=== PATIENT | female | born 1995 | race Caucasian/White ===

== ENCOUNTER 2025-05-18 09:17 | Outpatient (OUT) | payer OTHER, SELFPAY ==
--- OUTSIDE RECORDS SUMMARY | 2014-08-02 05:53 | XMS_ITS | Continuity of Care Document ---
Author Organization [facility] Address [address] [place] [address] [place] [address] Phone Care Team Providers Care Water Plant Pump Operator Name Role Phone Kiersten Echevarria CNP, CNP Unavailable Unav ailable Medications Medication Instructions Dosage Effective Dates (start - stop) Status Comments pantoprazole 40 mg tablet,delayed release take 1 tablet by oral route every day 40 MG - Active Multivitamins 28 mg iron-800 mcg tablet take 1 tablet by oral route every day 1 tablet - Active meloxicam 15 mg tablet take 1 tablet by oral route every day as needed 15 MG - Active biotin 1 mg capsule [...] Diagnoses Date Provider Providers Copied on Encounter [facility], [address] [place] [address] [address], [place], [place], [id number], [place] tel:[phone] [facility] No Information Swathi Burch. [address], [place], [id number], [place]. tel:[phone] OFFICE/OUTPAT IENT VISIT, [facility], [address] [place] [address] [address], [place], [place], [id number], [place] tel:[phone] [facility] No Information Marla Escudero. [address], [place], [place], [id number], [place]. tel:[phone] Referring Provider: Kota Parada, [address], [place], [address]. tel:[phone] OFFICE/OUTPAT IENT VISIT, [facility] [employer], [address] [place] [address] [address], [place], [place], [id number], [place] tel:[phone] [facility] No Information Swathi Burch. [address] [place], [place], [id number], [place]. tel:[phone] Referring Provider: Kiersten Echevarria CNP, [address], [place], [address]. tel:[phone] OFFICE/OUTPAT IENT VISIT, [facility], [address] [place] [address] [address], [place], [id number], [place] tel:[phone] [facility] No Information Marla Escudero. [address], [place], [place], [address], [place]. tel:[phone] Referring Provider: Kota Parada, [address], [place], [address]. tel:[phone] [facility], [address] [place] [address] [address], [place], [place], [id number], [place] tel:[phone] [facility] No Information Angus Lee. [address], [place], [place], [id number], [place]. tel:[phone] Referring Provider: Rosa Ladd, Nathaniel[address], [place], [address]. tel:[phone] OFFICE/OUTPAT IENT VISIT, [facility], [address] [facility] [address], [place], [place], [address], [place] tel:[phone] [facility] No Information Swathi Burch. [address] [place], [place], [id number], [place]. tel:[phone] Referring Provider: Kiersten Echevarria CNP, [address] [place], [address]. tel:[phone] Family History Family Member Type Diagnosis Age At Onset No Information Payers Payer name Insurance type Covered constitution party ID Authoriza anderson(s) Medicaid [id number] Social History Type Description Quantity Date Captured Comments Alcohol Use Details Unknown Caffeine Use Details Unknown Tobacco Use Status Very heavy cigarette smoker (40+ cigs/day) Smoking Status Heavy tobacco smoker Smoking Tobacco Use Details Cigarette: No Details Available Cigarette: 2 Packs per day Sex Female Chief Complaint And Reason For Visit No [...]
--- OUTSIDE RECORDS SUMMARY | 2025-05-18 09:23 | XMS_ITS | Encounter Summary ---
Author Organization [facility] Address [address] [place] [address] Care Team Providers Care Supply Manager Name Role Phone Josee Tre Watts Primary Care Provider + Source Comments In the event this information is protected by the Federal Confidentiality of Alcohol and Drug AbusePatient Records regulations: The Federal rules restrict any use of the information to criminally investigate or prosecute any alcohol or drug abuse patient.[facility] Encounter Details Date Type Department Care Team (Late st Contact Info) Description 05/04/2025 Get Medical Advice General Surgery [address] [id number] Kim Carey, FREIDA.HEAD CAGER [address] [place] [address] Testings Social History Tobacco Use Types Packs/Day Years Used Date Smoking Tobacco: Former Cigarettes Smokeless Tobacco: Never Comments:nicotine free vape Alcohol Use Standard Drinks/Week Comments Not Currently 0 (1 standard drink = 0.6 oz pur e alcohol) none PHQ-2 Answer Date Recorded PHQ-2 score 2 04/19/2025 Hunger Vital Sign Answer Date Recorded Within the past 12 months, y ou worried that your food would run out before you got the money to buy more. Never true 04/01/20 25 Within the past 12 months, t he food you bought just didn't last and you didn't have money to get more. Never true 04/01/2025 Area Deprivation Index Answer Date Chadd rded National Score (1-100), lower number is lower ri sk 80 02/18/2025 State Score (1-10), lower number is lower risk 7 02/18/2025 Data from: https://www.neighborhoodatlas.medicine.[facility] [place]/. Last address used for calculation [address] 02/18/2025 Comments No Sex and Gender Information Value Date Recorded Sex Assigned at Female 02/16/2021 6:50 PM EDT Legal Sex Female 10:17 AM EST Gender Identity Female 02/16/2021 6:50 PM EDT Sexual Orientation Bisexual 02/16/2021 6: 50 PM EDT documented as of this encounter Functional Status * Are you deaf or do you have serious difficulty hearing? Answer Date of Assessment Author No 08/22/2021 11:44 AM Ana Oliva RN * Are you blind or do you have serious difficulty seeing, even when wearing glasses? Answer Date of Assessment Author No 08/22/2021 11:44 AM Ana Oliva RN * Do you have serious difficulty walking or climbing stairs? Answer Date of Assessment Author No 08/22/2021 11:44 AM Ana Oliva RN * Do you have difficulty dressing or bathing? Answer Date of Assessment Author No 08/22/2021 11:44 AM Ana Oliva RN * Because of a physical, mental, or emotional condition, do you have difficulty doing errands alone such as visiting a doctor's office or shopping? Answer Date of Assessment Author No 08/22/2021 11:44 AM Ana Oliva RN documented as of this encounter Mental Status * Because of a physical, mental, or emotional condition, do you have serious difficulty concentrating, remembering, or making decisions? Answer Entry Date Author No 08/22/2021 11:44 AM Ana Oliva RN documented in this encounter Plan of Treatment Upcoming Encounters Date Type Department Care Team (Latest Contact Info) Description 05/24/2025 3:15 PM EDT [facility] General Surgery [address] [place] [address] Mckayla Borja, RD [address] [place] [address] pre-op 06/28/2025 10:00 AM EDT [facility] Genetic [facility] [address] [place] [address] Maude Tse LGC Family history of breast cancer [Z80.3] 09/15/2025 9:30 AM EST [facility] Nutrition [address] [place] [address] Holli Cerda, G[address] [facility] [address] [place] [address] nutrition documented as of this encounter Goals Goal Patient Goal Type Associated Problems Recent Progress Patient-Stated? Author Bariatric Surgery Authorization Computational Biologist Care Plan Bariatric Surgery Authorization Computational Biologist No Mariela Larkin documented as of this encounter Visit Diagnoses Not on filedocumented in this encounter Additional Health Concerns Active Problems Noted Date Diagnosed Date Bariatric Surgery Authorization Computational Biologist 0 03/01/2025 documented as of this encounter Care Teams Supply Manager Relationship Specialty Start Date End Date Tre Tripp DO [address] [place] [address] PCP - General Family Medicine 10/20/15 documented as of this encounter
--- OUTSIDE RECORDS SUMMARY | 2025-05-18 09:23 | XMS_ITS | Encounter Summary ---
Author Organization [facility] Address [address] [place] [address] Care Team Providers Care Metal Furniture Polisher Name Role Phone Tre Tripp DO Primary Care Provider + Source Comments In the event this information is protected by the Federal Confidentiality of Alcohol and Drug AbusePatient Records regulations: The Federal rules restrict any use of the information to criminally investigate or prosecute any alcohol or drug abuse patient.[facility] Encounter Details Date Type Department Care Team (Late st Contact Info) Description 03/01/2025 [place] [address] Provider, [facility] Introduction to your Bariatric Surgery Journey Social History Tobacco Use Types Packs/Day Years Used Date Smoking Tobacco: Every Day Cigarettes Smokeless Tobacco: Never Comments:about 5 cigs a day, trying to quit Alcohol Use Standard Drinks/Week Comments Not Currently 0 (1 standard drink = 0.6 oz pur e alcohol) PHQ-2 Answer Date Recorded PHQ-2 score 1 02/16/2025 Area Deprivation Index Answer Date Chadd rded National Score (1-100), lower number is lower ri sk 80 02/18/2025 State Score (1-10), lower number is lower risk 7 02/18/2025 Data from: https://www.neighborhoodatlas.medicine.[facility]/. Last address used for calculation [address] 02/18/2025 Comments No Sex and Gender Information [...] Contact Info) Description 05/24/2025 3:15 PM EDT [facility] General Surgery [address] [place] [address] Mckayla Borja, GINO [address] [place] [address] pre-op 06/28/2025 10:00 AM EDT [facility] [address] [place] [address] Maude Tse LGC Family history of breast cancer [Z80.3] 09/15/2025 9:30 AM EST [facility] Nutrition [address] [place] [address] Holli Cerda, GINO [address] [facility] [address] [place] [address] nutrition documented as of this encounter Goals Goal Patient Goal Type Associated Problems Recent Progress Patient-Stated? Author Bariatric Surgery Authorization Corporate Relations Manager Care Plan Bariatric Surgery Authorization Corporate Relations Manager No Mariela Larkin documented as of this encounter Visit Diagnoses Not on filedocumented in this encounter Additional Health Concerns Active Problems Noted Date Diagnosed Date Bariatric Surgery Authorization Corporate Relations Manager 0 03/01/2025 documented as of this encounter Care Teams Metal Furniture Polisher Relationship Specialty Start Date End Date Tre Tripp DO [address] [place] [address] PCP - General Family Medicine 10/20/15 documented as of this encounter
--- OUTSIDE RECORDS SUMMARY | 2025-05-18 09:23 | XMS_ITS | Encounter Summary ---
Author Organization [facility] Address [address] [place] [address] Care Team Providers Care Brokerage Coordinator Name Role Phone BrockTre turcios Primary Care Provider + Source Comments In the event this information is protected by the Federal Confidentiality of Alcohol and Drug AbusePatient Records regulations: The Federal rules restrict any use of the information to criminally investigate or prosecute any alcohol or drug abuse patient.[facility] Encounter Details Date Type Department Care Team (Late st Contact Info) Description 05/02/2021 Get Medical Advice Maternal Medicine [address] [address] [place] [address] [place] [address] [address] [id number] Non-Urgent Medical Question Social History Tobacco Use Types Packs/Day Years Used Date Smoking Tobacco: Every Day Cigarettes Smokeless Tobacco: Never Comments:about 5 cigs a day, trying to quit Alcohol Use Standard Drinks/Week Comments Not Currently 0 (1 standard drink = 0.6 oz pur e alcohol) Area Deprivation Index Answer Date Chadd rded National Score (1-100), lower number is lower ri sk Not on file 03/28/2021 State Score (1-10), lower number is lower risk N ot on file 03/28/2021 Data from: https://www.neighborhoodatlas.medicine.[facility].edu/. Last address used for calculation Not on file 03/28/2021 Comments Yes Sex and Gender Information Value Date Recorded Sex Assigned at Female 02/16/2021 6:50 PM EDT Legal Sex Female 10:17 AM EST Gender Identity Female 02/16/2021 6:50 PM EDT Sexual Orientation Bisexual 02/16/2021 6: 50 PM EDT COVID-19 Exposure Response Date Recorded In the last month, have you been in contact with someone who was confirmed or suspected to have Coronavirus / COVID-19? No / Unsure 05/01/2021 2:10 PM EDT documented as of this encounter Plan of Treatment Upcoming Encounters Date Type Department Care Team (Latest Contact Info) Description 05/24/2025 3:15 PM EDT [facility] General Surgery [address] [place] [address] Mckayla Borja, RD [address] [place] [address] pre-op 06/28/2025 10:00 AM EDT [facility] [address] [place] [address] Maude Tse LGC Family history of breast cancer [Z80.3] 09/15/2025 9:30 AM EST [facility] Nutrition [address] [address] [place] [address] [facility] [address] [place] [address] nutrition documented as of this encounter Visit Diagnoses Not on filedocumented in this encounter Additional Health Concerns Infection Onset Date Last Indicated Resolved Time COVID-19 Rule-Out 05/22/2021 05/22/2021 05/22/2021 8:46 PM EDT COVID-19 Rule-Out 08/18/2021 08/18/2021 08/18/2021 10:14 PM EST documented as of this encounter Care Teams Brokerage Coordinator Relationship Specialty Start Date End Date Tre Tripp DO [address] [facility] [address] [facility] [address] [place] [address] PCP - General Family Medicine 10/20/15 documented as of this encounter
--- OUTSIDE RECORDS SUMMARY | 2025-05-18 09:23 | XMS_ITS | Encounter Summary ---
Author Organization [facility] Address [facility] [place] [address] Care Team Providers Care Graphic Designer Name Role Phone Tre Tripp Mac Primary Care Provider + Source Comments In the event this information is protected by the Federal Confidentiality of Alcohol and Drug AbusePatient Records regulations: The Federal rules restrict any use of the information to criminally investigate or prosecute any alcohol or drug abuse patient.[facility] Encounter Details Date Type Department Care Team (Late st Contact Info) Description 03/17/2025 Patient Msg [facility] [address] [place] [address] Provider, Ccf Appointment Social History Tobacco Use Types Packs/Day Years Used Date Smoking Tobacco: Every Day Cigarettes Smokeless Tobacco: Never Comments:about 5 cigs a day, trying to quit Alcohol Use Standard Drinks/Week Comments Not Currently 0 (1 standard drink = 0.6 oz pur e alcohol) PHQ-2 Answer Date Recorded PHQ-2 score 1 03/19/2025 Area Deprivation Index Answer Date Chadd rded National Score (1-100), lower number is lower ri sk 80 02/18/2025 State Score (1-10), lower number is lower risk 7 02/18/2025 Data from: https://www.neighborhoodatlas.[facility]/. Last address used for calculation [address] 02/18/2025 Comments No Sex and Gender Information [...] Contact Info) Description 05/24/2025 3:[address] [facility] General Surgery [address] [place] [address] Mckayla Borja, RD [address] [place] [address] pre-op 06/28/2025 10:00 AM EDT [facility] [address] [place] [phone] Maude Tse LGC Family history of breast cancer [Z80.3] 09/15/2025 9:30 AM EST [facility] [address] [place] [address] Holli Cerda, RD [facility] [address] [place] [address] nutrition documented as of this encounter Goals Goal Patient Goal Type Associated Problems Recent Progress Patient-Stated? Author Bariatric Surgery Authorization Seaweed Harvester Care Plan Bariatric Surgery Authorization Seaweed Harvester No Mariela Larkin documented as of this encounter Visit Diagnoses Not on filedocumented in this encounter Additional Health Concerns Active Problems Noted Date Diagnosed Date Bariatric Surgery Authorization Seaweed Harvester 0 03/01/2025 documented as of this encounter Care Teams Graphic Designer Relationship Specialty Start Date End Date Tre Tripp DO [address] [facility] [address] [place] [phone] PCP - General Family Medicine 10/20/15 documented as of this encounter
--- OUTSIDE RECORDS SUMMARY | 2025-05-18 09:23 | XMS_ITS | Encounter Summary ---
Author Organization [facility] Address [address] [place] [address] Care Team Providers Care Surgery Scheduler Name Role Phone Tre Tripp Primary Care Provider + Source Comments In the event this information is protected by the Federal Confidentiality of Alcohol and Drug AbusePatient Records regulations: The Federal rules restrict any use of the information to criminally investigate or prosecute any alcohol or drug abuse patient.[facility] Encounter Details Date Type Department Care Team (Late st Contact Info) Description 11/28/2021 Patient Msg Obstetrics/Gynecolog y [address] [place], [place] [phone] [place] [address] [place] [address] Appointment Cancellation Request Social History Tobacco Use Types Packs/Day Years [...] N ot on file 03/28/2021 Data from: https://www.neighborhoodatlas.[facility]/. Last address used for calculation Not on file 03/28/2021 Comments No Sex and Gender Information Value [...] Contact Info) Description 05/24/2025 3:15 PM EDT [facility] General Surgery [address] [place] [address] Mckayla Borja, RD [address] [place] [address] pre-op 06/28/2025 10:[address] [facility] [address] [place] [address] Maude Tse LGC Family history of breast cancer [Z80.3] 09/15/2025 9:30 AM EST [facility] Nutrition [address] [place] [address] Holli Cerda, RD [facility] [address] [place] [address] nutrition documented as of this encounter Visit Diagnoses Not on filedocumented in this encounter Care Teams Surgery Scheduler Relationship Specialty Start Date End Date Tre Tripp DO [address] [facility] [address] [place] [phone] PCP - General Family Medicine 10/20/15 documented as of this encounter
--- OUTSIDE RECORDS SUMMARY | 2025-05-18 09:23 | XMS_ITS | Encounter Summary ---
Author Organization [facility] Address [address] [place] [address] Care Team Providers Care Parks And Recreation Manager Name Role Phone Tre Tripp DO Primary Care Provider + Source Comments In the event this information is protected by the Federal Confidentiality of Alcohol and Drug AbusePatient Records regulations: The Federal rules restrict any use of the information to criminally investigate or prosecute any alcohol or drug abuse patient.[facility] Encounter Details Date Type Department Care Team (Late st Contact Info) Description 04/01/2025 Patient Msg General Surgery [address] [place] [phone] Provider, Ccf Nutrition Summary Social History Tobacco Use Types Packs/Day Years Used Date Smoking Tobacco: Every Day Cigarettes Smokeless Tobacco: Never Comments:about 5 cigs a day, trying to quit Alcohol Use Standard Drinks/Week Comments Not Currently 0 (1 standard drink = 0.6 oz pur e alcohol) PHQ-2 Answer Date Recorded PHQ-2 score 0 03/24/2025 Hunger Vital Sign Answer Date Recorded Within the past 12 months, y ou worried that your food would run out before you got the money to buy more. Never true 04/01/20 Within the past 12 months, t he food you bought just didn't last and you didn't have money to get more. Never true 04/01/2025 Area Deprivation Index Answer Date Chadd rded National Score (1-100), lower number is lower ri sk 80 02/18/2025 State Score (1-10), lower number is lower risk 7 02/18/2025 Data from: https://www.neighborhoodatlas.[facility]/. Last address used for calculation [address] [...] Contact Info) Description 05/24/2025 3:15 PM EDT [facility] Surgery [address] [place], [place] [address] Mckayla Borja, RD [address] [place] [address] pre-op 06/28/2025 10:00 AM EDT [facility] Genetic [facility] [address] [place] [address] Maude TseSUKUMAR Family history of breast cancer [Z80.3] 09/15/2025 9:30 AM EST [facility] [employer] Nutrition [address] [place] [address] Holli Cerda, GINO [facility] [address] [place] [address] nutrition documented as of this encounter Goals Goal Patient Goal Type Associated Problems Recent Progress Patient-Stated? Author Bariatric Surgery Authorization Instrumental Music Teacher Care Plan Bariatric Surgery Authorization Instrumental Music Teacher No Mariela Larkin documented as of this encounter Visit Diagnoses Not on filedocumented in this encounter Additional Health Concerns Active Problems Noted Date Diagnosed Date Bariatric Surgery Authorization Instrumental Music Teacher 0 03/01/2025 documented as of this encounter Care Teams Parks And Recreation Manager Relationship Specialty Start Date End Date Tre Tripp DO [address] [facility] [address] [place] [phone] PCP - General Family Medicine 10/20/15 documented as of this encounter
--- OUTSIDE RECORDS SUMMARY | 2025-05-18 09:23 | XMS_ITS | Encounter Summary ---
Author Organization [facility] Address [address] [place] [address] Care Team Providers Care Waistband Setter Name Role Phone Tre Tripp DO Primary Care Provider + Source Comments In the event this information is protected by the Federal Confidentiality of Alcohol and Drug AbusePatient Records regulations: The Federal rules restrict any use of the information to criminally investigate or prosecute any alcohol or drug abuse patient.[facility] Encounter Details Date Type Department Care Team (Late st Contact Info) Description 04/29/2025 Patient Msg General Surgery [address] [place] [phone] Provider, Ccf Appointment Request Social History Tobacco Use Types Packs/Day [...] is lower risk 7 02/18/2025 Data from: https://www.neighborhoodatlas.medicine.[facility]/. Last address used for calculation [address] [...] PM EDT [facility] Surgery [address] [place] [address] Mckayla Borja, RD [address] [place] [address] pre-op 06/28/2025 10:00 AM EDT [facility] Genetic [facility] [address] [place] [address] Maude TseSUKUMAR Family history of breast cancer [Z80.3] 09/15/2025 9:30 AM EST [facility] [address] [place] [address] Holli Cerda, RD [facility] JEN[address]FER [address] [place] [address] nutrition documented as of this encounter Goals Goal Patient Goal Type Associated Problems Recent Progress Patient-Stated? Author Bariatric Surgery Authorization Marine Steam Fitter Care Plan Bariatric Surgery Authorization Marine Steam Fitter No Mariela Larkin documented as of this encounter Visit Diagnoses Not on filedocumented in this encounter Additional Health Concerns Active Problems Noted Date Diagnosed Date Bariatric Surgery Authorization Marine Steam Fitter 0 03/01/2025 documented as of this encounter Care Teams Waistband Setter Relationship Specialty Start Date End Date Tre Tripp DO [address] [facility] [address] [place] [phone] PCP - General Family Medicine 10/20/15 documented as of this encounter
--- OUTSIDE RECORDS SUMMARY | 2025-05-18 09:23 | XMS_ITS | Encounter Summary ---
Author Organization [facility] Address [address] [place] [address] Care Team Providers Care Construction Representative Name Role Phone Valenciacarlos Tre Watts Primary Care Provider + Source Comments In the event this information is protected by the Federal Confidentiality of Alcohol and Drug AbusePatient Records regulations: The Federal rules restrict any use of the information to criminally investigate or prosecute any alcohol or drug abuse patient.[facility] Encounter Details Date Type Department Care Team (Late st Contact Info) Description 04/12/2025 Get Medical Advice General Surgery BMI PSY [address] [place] [address] Lianna Traylor, PhD [address] [place] [address] Nicotine test Social History Tobacco Use Types Packs/Day Years Used Date Smoking Tobacco: Every Day Cigarettes Smokeless Tobacco: Never Comments:about 5 cigs a day, trying to quit Alcohol Use Standard Drinks/Week Comments Not Currently 0 (1 standard drink = 0.6 oz pur e alcohol) PHQ-2 Answer Date Recorded PHQ-2 score 0 04/06/2025 Hunger Vital Sign Answer Date Recorded Within [...] is lower risk 7 02/18/2025 Data from: https://www.neighborhoodatlas.medicine.[facility]/. Last address used for calculation [...] Contact Info) Description 05/24/2025 3:15 PM EDT [facility] General Surgery [address] [place] [address] Mckayla Borja, RD [address] [place] [address] pre-op 06/28/2025 10:00 AM EDT [facility] [address] [place] [address] Maude Tse LGC Family history of breast cancer [Z80.3] 09/15/2025 9:30 AM EST [facility] Nutrition [address] [place] [address] Holli Cerda, GINO [facility] [address] [place] [address] nutrition documented as of this encounter Goals Goal Patient Goal Type Associated Problems Recent Progress Patient-Stated? Author Bariatric Surgery Authorization Heat Treating Operator Care Plan Bariatric Surgery Authorization Heat Treating Operator No Mariela Larkin documented as of this encounter Visit Diagnoses Not on filedocumented in this encounter Additional Health Concerns Active Problems Noted Date Diagnosed Date Bariatric Surgery Authorization Heat Treating Operator 0 03/01/2025 documented as of this encounter Care Teams Construction Representative Relationship Specialty Start Date End Date Tre Tripp DO [address] [place] [phone] PCP - General Family Medicine 10/20/15 documented as of this encounter
--- OUTSIDE RECORDS SUMMARY | 2025-05-18 09:23 | XMS_ITS | Encounter Summary ---
Author Organization [facility] Address [facility] [place] [address] Care Team Providers Care Management Manager Name Role Phone Valenciacarlos Tre Watts Primary Care Provider + Source Comments In the event this information is protected by the Federal Confidentiality of Alcohol and Drug AbusePatient Records regulations: The Federal rules restrict any use of the information to criminally investigate or prosecute any alcohol or drug abuse patient.[facility] Encounter Details Date Type Department Care Team (Late st Contact Info) Description 05/02/2025 Get Medical Advice General Surgery [address] [place] [address] Isak López [place] [address] [place] [address] Type of Surgery Social History Tobacco Use Types Packs/Day Years [...] is lower risk 7 02/18/2025 Data from: https://www.neighborhoodatlas.medicine.[facility]/. Last address used for calculation [...] Entry Date Author No 08/22/2021 11:44 AM nAa Oliva RN documented in this encounter Plan of Treatment Upcoming Encounters Date Type Department Care Team (Latest Contact Info) Description 05/24/2025 3:15 PM EDT [facility] General Surgery [address] [place] [address] Mckayla Borja, RD [address] [place] [address] pre-op 06/28/2025 10:00 AM EDT [facility] Genetic [facility] [address] [place] [address] Maude Tse LGC Family history of breast cancer [Z80.3] 09/15/2025 9:30 AM EST [facility] Nutrition [address] [place] [address] Holli Cerda, GINO [facility] [address] [place] [address] nutrition documented as of this encounter Goals Goal Patient Goal Type Associated Problems Recent Progress Patient-Stated? Author Bariatric Surgery Authorization Charity Fundraiser Care Plan Bariatric Surgery Authorization Charity Fundraiser No Mariela Larkin documented as of this encounter Visit Diagnoses Not on filedocumented in this encounter Additional Health Concerns Active Problems Noted Date Diagnosed Date Bariatric Surgery Authorization Charity Fundraiser 0 03/01/2025 documented as of this encounter Care Teams Management Manager Relationship Specialty Start Date End Date Tre Tripp DO [address] [place] [phone] PCP - General Family Medicine 10/20/15 documented as of this encounter
--- OUTSIDE RECORDS SUMMARY | 2025-05-18 09:23 | XMS_ITS | Encounter Summary ---
Author Organization [facility] Address [address] [place] [address] Care Team Providers Care Pin Drafter Name Role Phone Tre Tripp DO Primary Care Provider + Source Comments In the event this information is protected by the Federal Confidentiality of Alcohol and Drug AbusePatient Records regulations: The Federal rules restrict any use of the information to criminally investigate or prosecute any alcohol or drug abuse patient.[facility] Encounter Details Date Type Department Care Team (Late st Contact Info) Description 04/08/2025 Get Medical Advice General Surgery [address] [place] [phone] Provider, Ccf Liquid Diet Social History Tobacco Use Types Packs/Day Years [...] is lower risk 7 02/18/2025 Data from: https://www.neighborhoodatlas.[facility]/. Last address used for calculation [address] [...] Contact Info) Description 05/24/2025 3:15 PM EDT [facility] Surgery [address] [place], [place] [phone] Mckayla Borja, RD [address] [place] [address] pre-op 06/28/2025 10:00 AM EDT [facility] Genetic [facility] [address] [place] [address] Maude TseSUKUMAR Family history of breast cancer [Z80.3] 09/15/2025 9:30 AM EST [facility] [employer] Nutrition [address] [place] [address] Holli Cerda, GINO [facility] [address] [place] [address] nutrition documented as of this encounter Goals Goal Patient Goal Type Associated Problems Recent Progress Patient-Stated? Author Bariatric Surgery Authorization Metallurgical Specialist Care Plan Bariatric Surgery Authorization Metallurgical Specialist No Mariela Larkin documented as of this encounter Visit Diagnoses Not on filedocumented in this encounter Additional Health Concerns Active Problems Noted Date Diagnosed Date Bariatric Surgery Authorization Metallurgical Specialist 0 03/01/2025 documented as of this encounter Care Teams Pin Drafter Relationship Specialty Start Date End Date Tre Tripp DO [address] [facility] [address] [place] [phone] PCP - General Family Medicine 10/20/15 documented as of this encounter
--- OUTSIDE RECORDS SUMMARY | 2025-05-18 09:23 | XMS_ITS | Encounter Summary ---
Author Organization [facility] Address [address] [place] [address] Care Team Providers Care Threshing Machine Operator Name Role Phone Tre Tripp Primary Care Provider + Source Comments In the event this information is protected by the Federal Confidentiality of Alcohol and Drug AbusePatient Records regulations: The Federal rules restrict any use of the information to criminally investigate or prosecute any alcohol or drug abuse patient.[facility] Encounter Details Date Type Department Care Team (Late st Contact Info) Description 01/21/2025 Patient Msg General Surgery BMI PSYL [address] [place], [place] [phone] Aliyah Marquez, PhD [address] [phone] Appointment Request Social History Tobacco Use Types Packs/Day Years Used Date Smoking Tobacco: Every Day Cigarettes Smokeless Tobacco: Never Comments:about 5 cigs a day, trying to quit Alcohol Use Standard Drinks/Week Comments Not Currently 0 (1 standard drink = 0.6 oz pur e alcohol) Area Deprivation Index Answer Date Chadd rded National Score (1-100), lower number is lower ri sk 80 01/21/2025 State Score (1-10), lower number is lower risk 7 01/21/2025 Data from: https://www.neighborhoodatlas.[facility]/. Last address used for calculation [address] 01/21/2025 Comments No Sex and Gender Information Value [...] Contact Info) Description 05/24/2025 3:15 PM EDT [facility] General Surgery [address] [place] [address] Mckayla Borja, RD [address] [place] [address] pre-op 06/28/2025 10:00 AM EDT [facility] [address] [place] [address] Maude Tse LGC Family history of breast cancer [Z80.3] 09/15/2025 9:30 AM EST [facility] Nutrition [address] [place] [address] Holli Cerda, GINO [facility] [address] [place] [address] nutrition documented as of this encounter Visit Diagnoses Not on filedocumented in this encounter Care Teams Threshing Machine Operator Relationship Specialty Start Date End Date Tre Tripp DO [address] [facility] [address] [place] [phone] PCP - General Family Medicine 10/20/15 documented as of this encounter
--- OUTSIDE RECORDS SUMMARY | 2025-05-18 09:23 | XMS_ITS | Encounter Summary ---
Author Organization [facility] Address [address] [place] [address] Care Team Providers Care Supervisor Correspondence Section Name Role Phone Brockkarolina Tre Watts Primary Care Provider + Source Comments In the event this information is protected by the Federal Confidentiality of Alcohol and Drug AbusePatient Records regulations: The Federal rules restrict any use of the information to criminally investigate or prosecute any alcohol or drug abuse patient.[facility] Encounter Details Date Type Department Care Team (Late st Contact Info) Description 02/18/2025 Patient Msg General Surgery BMI PSYL [address] [place], [place] [phone] Aliyah Marquez, PhD [address] [place] [phone] Thank you for attending the Psychology Welcome group! Social History Tobacco Use Types Packs/Day Years [...] is lower risk 7 02/18/2025 Data from: https://www.neighborhoodatlas.medicine.[facility]/. Last address used for calculation [address] 02/18/2025 Comments No Sex and Gender [...] Contact Info) Description 05/24/2025 3:15 PM EDT [facility] General Surgery [address] [place] [address] Mckayla Borja, RD [address] [place] [address] pre-op 06/28/2025 10:00 AM EDT [facility] [address] [place] [address] Maude Tse LGC Family history of breast cancer [Z80.3] 09/15/2025 9:30 AM EST [facility] [employer] Nutrition [address] [place] [address] Holli Cerda, RD [facility] J[address] [place] [address] nutrition documented as of this encounter Visit Diagnoses Not on filedocumented in this encounter Care Teams Supervisor Correspondence Section Relationship Specialty Start Date End Date Tre Tripp DO [address] [facility] [address] [place] [address] PCP - General Family Medicine 10/20/15 documented as of this encounter
--- OUTSIDE RECORDS SUMMARY | 2025-05-18 09:23 | XMS_ITS | Encounter Summary ---
Author Organization [facility] Address [address] [place] [address] Care Team Providers Care Clinical Laboratory Medical Director Name Role Phone Tre Tripp Mac Primary Care Provider + Source Comments In the event this information is protected by the Federal Confidentiality of Alcohol and Drug AbusePatient Records regulations: The Federal rules restrict any use of the information to criminally investigate or prosecute any alcohol or drug abuse patient.[facility] Encounter Details Date Type Department Care Team (Late st Contact Info) Description 01/24/2025 Patient Msg General Surgery [address] [place] [address] Provider, Ccf BMI Appoinment Social History Tobacco Use Types Packs/Day Years [...] is lower risk 7 01/21/2025 Data from: https://www.neighborhoodatlas.medicine.[facility].edu/. Last address used for calculation [address] [place] [facility] [place] 01/21/2025 Comments No Sex and Gender Information [...] Info) Description 05/24/2025 3:15 PM EDT [facility] General Surgery [address] [place] [address] Mckayla Borja, GINO [address] [place] [address] pre-op 06/28/2025 10:00 AM EDT [facility] [address] [place] [address] Maude Tse LGC Family history of breast cancer [Z80.3] 09/15/2025 9:30 AM EST [facility] Nutrition [address] [place] [address] [facility] J[address] [place] [address] nutrition documented as of this encounter Visit Diagnoses Not on filedocumented in this encounter Care Teams Clinical Laboratory Medical Director Relationship Specialty Start Date End Date Tre Tripp DO [address] [facility] [address] [facility] [address] [place] [address] PCP - General Family Medicine 10/20/15 documented as of this encounter
--- OUTSIDE RECORDS SUMMARY | 2025-05-18 09:23 | XMS_ITS | Encounter Summary ---
Author Organization [facility] Address [address] [place] [address] Care Team Providers Care Sat Math Tutor Name Role Phone Tre Tripp DO Primary Care Provider + Source Comments In the event this information is protected by the Federal Confidentiality of Alcohol and Drug AbusePatient Records regulations: The Federal rules restrict any use of the information to criminally investigate or prosecute any alcohol or drug abuse patient.[facility] Encounter Details Date Type Department Care Team (Late st Contact Info) Description 05/17/2025 Get Medical Advice General Surgery [address] [phone] Provider, Ccf Appointment Social History Tobacco Use [...] is lower risk 7 02/18/2025 Data from: https://www.neighborhoodatlas.medicine.[facility]/. Last address used for calculation [address] [...] Contact Info) Description 05/24/2025 3:15 PM EDT [facility] Surgery [address] [place] [address] Mckayla Borja, RD [address] [place] [address] pre-op 06/28/2025 10:00 AM EDT [facility] Genetic [facility] [address] [place] [address] Dedrick MaudeSUKUMAR Family history of breast cancer [Z80.3] 09/15/2025 9:30 AM EST [facility] Nutrition [address] [place] [address] Holli Cerda, RD [facility] [address] [place] [address] nutrition documented as of this encounter Goals Goal Patient Goal Type Associated Problems Recent Progress Patient-Stated? Author Bariatric Surgery Authorization Paper Twister Tender Care Plan Bariatric Surgery Authorization Paper Twister Tender No Mariela Larkin documented as of this encounter Visit Diagnoses Not on filedocumented in this encounter Additional Health Concerns Active Problems Noted Date Diagnosed Date Bariatric Surgery Authorization Paper Twister Tender 0 03/01/2025 documented as of this encounter Care Teams Sat Math Tutor Relationship Specialty Start Date End Date Tre Tripp DO [address] [facility] [address] [place] [phone] PCP - General Family Medicine 10/20/15 documented as of this encounter
--- OUTSIDE RECORDS SUMMARY | 2025-05-18 09:23 | XMS_ITS | Encounter Summary ---
Author Organization [facility] Address [address] [place] [address] Care Team Providers Care Make Up Operator Name Role Phone Valenciacarlos Tre Watts Primary Care Provider + Source Comments In the event this information is protected by the Federal Confidentiality of Alcohol and Drug AbusePatient Records regulations: The Federal rules restrict any use of the information to criminally investigate or prosecute any alcohol or drug abuse patient.[facility] Encounter Details Date Type Department Care Team (Late st Contact Info) Description 04/25/2025 Patient Msg General Surgery [address] [phone] Kim Carey, FREIDA.RESIDENTIAL CHILD CARE COUNSELOR [address] [place] [address] end of appt Social History Tobacco Use Types Packs/Day Years [...] is lower risk 7 02/18/2025 Data from: https://www.neighborhoodatlas.medicine.[facility]/. Last address used for calculation [...] [facility] General Surgery [address] [place] [address] Mckayla Borja, RD [address] [place] [address] pre-op 06/28/2025 10:00 AM EDT [facility] [address] [place] [address] Maude Tse LGC Family history of breast cancer [Z80.3] 09/15/2025 9:30 AM EST [facility] Nutrition [address] [place] [address] Holli Cerda, RD [facility] [address] [place] [address] nutrition documented as of this encounter Goals Goal Patient Goal Type Associated Problems Recent Progress Patient-Stated? Author Bariatric Surgery Authorization Uranium Processing Supervisor Care Plan Bariatric Surgery Authorization Uranium Processing Supervisor No Mariela Larkin documented as of this encounter Visit Diagnoses Not on filedocumented in this encounter Additional Health Concerns Active Problems Noted Date Diagnosed Date Bariatric Surgery Authorization Uranium Processing Supervisor 0 03/01/2025 documented as of this encounter Care Teams Make Up Operator Relationship Specialty Start Date End Date Tre Tripp DO [address] [place] [phone] PCP - General Family Medicine 10/20/15 documented as of this encounter
--- NOTE | 2025-05-18 10:27 | US_ITS ---
The [address] [address] Patient Name: TANA GOODMAN MRN: [id number] date: 1995 Sex: F Assigned Patient Location: LAB Current Patient Location: LAB Accession/Order Number: [id number] Exam Date: 05/18/2025 10:28 Report Date: 05/18/2025 11:19 At the request of: NON-STAFF PHYSICIAN MD Procedure: US right upper quadrant LIMITED UPPER QUADRANT ABDOMINAL ULTRASOUND CLINICAL HISTORY: class 3 severe obesity due to excess calories. Preoperative evaluation. COMPARISON: None The gallbladder is physiologically distended without shadowing calculi, wall thickening or pericholecystic fluid. No intra- or extrahepatic biliary dilatation is evident. The common duct measures 2 - 3 mm. The liver shows slight increased echogenicity with respect to the right kidney on the final image and fatty infiltration is not excluded. No intrahepatic masses are seen. There is appropriate hepatopetal flow within the main portal vein. The pancreas shows no significant sonographic abnormality. Cursory evaluation of the right kidney reveals no hydronephrosis or fluid within Leavitt's pouch. US/US right upper quadrant IMPRESSION: NO GALLBLADDER PATHOLOGY. QUESTION OF FATTY LIVER. Impression dictated by: Isabel Emery M.D. 05/18/2025 11:19 AM Dictation Location: [place] [address] Electronically authenticated by: [id number] Y Date: 05/18/2025 11:19
[2025-05-18 10:31] LABS: Hematocrit 35.4 % (36.0-48.0); Hemoglobin 11.0 g/dL (12.0-16.0); Immature Granulocytes Abs Auto 0.05 10^3/uL (0.00-0.03); Immature Granulocytes Pct Auto 0.4 % (0.0-0.5); Lymphocytes Absolute Auto 3.0 10^3/uL (1.2-3.8); Mean Corpuscular HGB Conc 31.1 g/dL (29.9-35.2); Mean Corpuscular Hemoglobin 24.6 pg (26.7-34.0); Mean Corpuscular Volume 79.2 fL (81.0-99.0); Platelet Count 448 10^3/uL (150-450); Red Blood Count 4.47 10^6/uL (4.20-5.40); White Blood Count 11.8 10^3/uL (4.0-11.0)
--- NOTE | 2025-05-18 10:33 | XR_ITS ---
The [address] [address] Patient Name: TANA GOODMAN MRN: [id number] date: 1995 Sex: F Assigned Patient Location: LAB Current Patient Location: LAB Accession/Order Number: [id number] Exam Date: 05/18/2025 10:49 Report Date: 05/18/2025 11:22 At the request of: NON-STAFF PHYSICIAN MD Procedure: XR chest 2V PA AND LATERAL CHEST: CLINICAL HISTORY: preop testing, class 3 obesity due to excess calories COMPARISON: CT 04/06/2022 There is no focal parenchymal consolidation, effusion or pneumothorax. The cardiac, hilar and mediastinal silhouettes are within normal limits. There is no vascular congestion. The visualized bony thorax is intact. XR/XR chest 2V IMPRESSION: NO ACUTE CARDIOPULMONARY ABNORMALITY. Impression dictated by: Isabel Emery M.D. 05/18/2025 11:22 AM Dictation Location: [place] [address] Electronically authenticated by: [id number] Y Date: 05/18/2025 11:22
[2025-05-18 10:59] LABS: Alanine Aminotransferase 32 U/L (14-59); Albumin Globulin Ratio 0.5; Albumin Level 2.8 g/dL (3.4-5.0); Alkaline Phosphatase 76 U/L (46-116); Anion Gap 12.8; Aspartate Amino Transferase 23 U/L (15-37); Blood Urea Nitrogen 9.0 mg/dL (7.0-18.0); Calcium 9.1 mg/dL (8.5-10.1); Carbon Dioxide 26.6 mmol/L (21.0-32.0); Chloride 104 mmol/L (98-107); Cholesterol 211 mg/dL (<=200); Estimated GFR (African America >60 (>=60 mL/min/1.73m^2); Estimated GFR (Non-African Ame >60 (>=60 mL/min/1.73m^2); Globulin 5.6 g/dL; Glucose 89 mg/dL (74-106); HDL Cholesterol 63 mg/dL (40-60); NT Pro B Type Natriuretic Pept 29.0 pg/mL (<=450.0); Potassium 4.4 mmol/L (3.5-5.1); Sodium 139 mmol/L (136-145); Thyroid Stimulating Hormone 1.264 uIU/mL (0.358-3.740); Total Protein 8.4 g/dL (6.4-8.2); Triglycerides 119 mg/dL (<=150); VLDL CHOLESTEROL 23.8 mg/dL
[2025-05-18 11:20] LABS: Iron 32.0 ug/dL (50.0-170.0); Percent Iron Saturation 12.0 %; Total Iron Binding Capacity 266.0 ug/dL (250.0-450.0)
[2025-05-18 11:44] LABS: Ferritin 28.0 ng/mL (8.0-252.0)
[2025-05-18 12:09] LABS: Folate 8.70 ng/mL (8.60-58.90)
[2025-05-19 14:09] LABS: Vitamin B12 942 pg/mL (232-1245)
[2025-05-24 14:08] LABS: Vitamin B1 (Thiamine), Blood 111.0 nmol/L (66.5-200.0)
== END 2025-05-18 09:18 | disposition home or self-care (01) ==
LOC: LAB 09:20
PROVIDERS: PCP Family Medicine
DX: Z01.818 Encounter for other preprocedural examination (principal); E66.813 Obesity, class 3; Z68.44 Body mass index [BMI] 60.0-69.9, adult
CPT/HCPCS: 36415; 71046; 76705; 80053; 80061; 82306; 82607; 82728; 82746; 83036; 83540; 83550; 83880; 84425; 84443; 85025

== ENCOUNTER 2025-05-30 08:22 | Outpatient (OUT) | payer OTHER, SELFPAY ==
--- NOTE | 2025-05-30 08:45 | ECG_ITS ---
The [facility] Test Date: 2025-05-30 Pat Name: TANA GOODMAN Department: Room: - Gender: Female Test Desk Trouble Locator: : 1995 Requested By: [id number] Order Number: [id number] Reading MD: FRANCIA BRANTLEY M.D. Measurements Intervals [place] Rate: 83 P: 56 IA: 156 QRS: 43 QRSD: 93 T: 30 QT: 371 QTc: 438 Interpretive Statements SINUS RHYTHM Normal ECG No previous ECG available for comparison Electronically Signed On 05-31-2025 18:05:26 EDT by FRANCIA BRANTLEY M.D.
== END 2025-05-30 08:23 | disposition home or self-care (01) ==
LOC: CARD 08:26
PROVIDERS: PCP Family Medicine
DX: Z01.810 Encounter for preprocedural cardiovascular examination (principal)
CPT/HCPCS: 93005

== ENCOUNTER 2025-07-08 07:51 | Outpatient (OUT) | payer OTHER, SELFPAY ==
--- OUTSIDE RECORDS SUMMARY | 2014-08-02 05:53 | XMS_ITS | Continuity of Care Document ---
Author Organization [facility] Address [address] [place] [address] [place] [address] Phone Care Team Providers Care Records Custodian Name Role Phone Kiersten Echevarria CNP, CNP Unavailable Unav ailable Medications Medication Instructions Dosage Effective Dates (start - stop) Status Comments meloxicam 15 mg tablet take 1 tablet by oral route every day as needed 15 MG - Active Multivitamins 28 mg iron-800 mcg tablet take 1 tablet by oral route every day 1 tablet - Active pantoprazole 40 mg tablet,delayed release take 1 tablet by oral route every day 40 MG - Active biotin 1 mg capsule daily - Active Procedures Procedure Date OFFICE/OUTPATIENT VISIT, EST OFFICE/OUTPATIENT VISIT, EST OFFICE/OUTPATIENT VISIT, EST REMOVE DRUG IMPLANT DEVICE OFFICE/OUTPATIENT VISIT, NEW Advance Directives Directive Yes / No Effective Date File Name Resuscitation Not Answered N/A N/A Life Support Not Answered N/A N/A Intubation Not Answered N/A N/A Antibiotics Not Answered N/A N/A IV Fluid Support Not Answered N/A N/A Tube Feed Not Answered N/A N/A Other Directive N/A N/A WARNING:The information contained in this section is historical and is provided for information only and does not constitute a legal document or any assurance that the information is still accurate. Please verify the information with the del rosario of the legal document before using it for clinical purposes. Encounters Encounter Description Practice Location Reason(s) For Visit Diagnoses Date Provider Providers Copied on Encounter [email or web address], [address] [place] [address] [address], [place], [place], [id number], [place] tel:[phone] [facility] No Information Swathi Burch. [address], [place], [id number], [place]. tel:[phone] OFFICE/OUTPAT IENT VISIT, [facility], [address] [place] [address] [address], [place], [place], [id number], [place] tel:[phone] [facility] No Information Marla Escudero. [address], [place], [place], [id number], [place]. tel:[phone] Referring Provider: Kota Parada, [address], [place], [address]. tel:[phone] OFFICE/OUTPAT IENT VISIT, [facility], [address] [place] [address] [address], [place], [place], [id number], [place] tel:[phone] [facility] No Information Swathi Burch. [address] [place], [place], [id number], [place]. tel:[phone] Referring Provider: Kiersten Echevarria CNP, [address], [place], [address]. tel:[phone] OFFICE/OUTPAT IENT VISIT, [facility], [address] [place] [address] [address], [place], [place], [id number], [place] tel:[phone] [facility] No Information Marla Escudero. [address], [place], [place], [id number], [place]. tel:[phone] Referring Provider: Kota Parada, [address], [place], [address]. tel:[phone] [facility], [address] [place] [address] [address], [place], [place], [id number], [place] tel:[phone] [facility] No Information Angus Lee. [address], [place], [place], [id number], [place]. tel:[phone] Referring Provider: Rosa Ladd, [address], [place], [address]. tel:[phone] OFFICE/OUTPAT IENT VISIT, [facility], [address] [facility] [address], [place], [place], [id number], [place] tel:[phone] [facility] No Information Swathi Burch. [address], [place], [id number], [place]. tel:[phone] Referring Provider: Kiersten Echevarria CNP, [address] [place], [address]. tel:[phone] Family History Family Member Type Diagnosis Age At Onset No Information Payers Payer name Insurance type Covered alliance party ID Authornancy barron(s) Medicaid [id number] Social History Type Description Quantity Date Captured Comments Alcohol Use Details Unknown Caffeine Use Details Unknown Tobacco Use Status Very heavy cigarette smoker (40+ cigs/day) Smoking Status Heavy tobacco smoker Smoking Tobacco Use Details Cigarette: No Details Available Cigarette: 2 Packs per day [id number] SexFemale Chief Complaint And Reason For Visit No Information Reason For Referral Reason For Referral No Information History Of Present Illness Encounter Date Complaint History Of Prese nt Illness No Information Functional Status Date Functional Assessmen t No Information Instructions Date Instruction Additional Infor mation No Information Assessments Type Assessment Date No Information Patient Care Teams Name Effective Dates (start - stop) Status Members No Information
--- OUTSIDE RECORDS SUMMARY | 2024-07-14 11:15 | XMS_ITS ---
Author Organization [facility] Address [address] [place] [address] Care Team Providers Care Griddle Attendant Name Role Phone Art Snider Primary Care Provider REASON FOR VISIT MOVED SOONER Encounters Encounter Location Date Provider Diagnosis [facility] [address] [place] [address] 07/14/2024 Art Snider Plan Of Treatment No Information Progress Notes * TANA GOODMAN ADOB: [birth year] (30 yo F)Acc No.[id number]:07/14/2024 Progress Notes Patient: TANA FONTANA Provider:RAJIV CHUADOB:1995???Age:29 Y ???Sex:FemaleDate:07/14/2024hone:[phone]:[facility]-[address] Subjective: * Chief Complaints: * M BOBBY SOONER * Electronic signature of Art Snider DO on 07/08/2025 at 07:55 AM EDTSign off status: Pending * Appointment Provider: Ashley CHUA Date: 09/13/2023 Generated for Printing/Faxing/eTransmitting on:?07/08/2025 07:55 AM EDT
--- OUTSIDE RECORDS SUMMARY | 2024-12-10 09:00 | XMS_ITS ---
Author Organization [facility] Address [address] [place] [address] Care Team Providers Care Food Service Kitchen Supervisor Name Role Phone Art Snider Primary Care Provider REASON FOR VISIT 2 MONTH WEIGHT CHECK Encounters Encounter Location Date Provider Diagnosis [facility] [address] [place] [address] 12/10/2024 Art Snider Plan Of Treatment No Information Progress Notes * TANA GOODMAN ADOB: [birth year] (30 yo F)Acc No.[id number]:12/10/2024 Progress Notes Patient: TANA FONTANA Provider:RAJIV CHUADOB:1995???Age:29 Y ???Sex:FemaleDate:12/10/2024Phone:[phone]:[address] [place] [address] [facility]agaRANK[facility] HOSPITALMG-[id number] Subjective: * Chief Complaints: * 2 MONTH WEIGHT CHECK Billing Information: * Procedure Codes: * Electronic signature of Art Snider DO on 07/08/2025 at 07:55 AM EDTSign off status: Pending * Appointment Provider: Ashley CHUA Date: 0 12/10/2024 Generated for Printing/Faxing/eTransmitting on:?07/08/2025 07:55 AM EDT
--- OUTSIDE RECORDS SUMMARY | 2025-02-04 06:00 | XMS_ITS ---
Author Organization [facility] Address [address] [place] [address] Care Team Providers Care Speaker Wirer Name Role Phone Art Snider Primary Care Provider REASON FOR VISIT discuss referral Encounters Encounter Location Date Provider Diagnosis [facility] [address] [place] [address] 02/04/2025 Art Snider Plan Of Treatment No Information Progress Notes * TANA GOODMAN ADOB: [birth year] (30 yo F)Acc No.[id number]:02/04/2025 Progress Notes Patient: TANA FONTANA Provider:RAJIV CHUADOB:1995???Age:30 Y ???Sex:FemaleDate:02/04/2025Phone:[phone]:[address] [place], [place] [address] CENTEROL-[address] Subjective: * Chief Complaints: * D iscuss referral Billing Information: * Procedure Codes: * Electronic signature of Art Snider DO on 07/08/2025 at 07:56 AM EDTSign off status: Pending * Appointment Provider: Ashley CHUA Date: 0 02/04/2025 Generated for Printing/Faxing/eTransmitting on:?07/08/2025 07:56 AM EDT
--- OUTSIDE RECORDS SUMMARY | 2025-06-28 10:00 | XMS_ITS | Encounter Summary ---
Author Organization [facility] Address [facility] [place] [address] Care Team Providers Care Counter Pocket Sewer Name Role Phone Tre Tripp DO Primary Care Provider + Source Comments In the event this information is protected by the Federal Confidentiality of Alcohol and Drug AbusePatient Records regulations: The Federal rules restrict any use of the information to criminally investigate or prosecute any alcohol or drug abuse patient.[facility] Reason for Visit * ReasonCommentsFamily History Of Cancer * Consult, Test, Treat (Routine) - Pending ReviewSpecialtyDiagnoses / Procedures Referred By ContactReferred To Contact Diagnoses Family history of breast cancer Procedures MEDICAL GENETICS COUNSELING EACH 30 [place] [address] [place] [address] Phone: tel: fax: [employer] [address] [place] [address] Referral IDStatusReasonStart DateExpiration DateVisits RequestedVisits [id number] Review PCP Requested Referral Auto-Generated Referral / Encounter Details DateTypeDepartmentCare Team (Latest Contact Info)Zzoyelcxevs92/21/2025 10:00 AM [facility] [address] [place] [phone] Maude Tse LGC Family history of uterine cancer (Primary Dx); Family history of breast cancer- MGM in 30's and PGM in 40's Social History Tobacco UseTypesPacks/DayYears UsedDateSmoking Tobacco: FormerCigarettes Smokeless Tobacco: Never Comments:nicotine free vape Alcohol UseStandard Drinks/WeekCommentsNot Currently0 (1 standard drink = 0.6 oz pure alcohol)nonePHQ-2AnswerDate RecordedPHQ-2 deknn161Hunger Vital Sign AnswerDate RecordedWithin the past 12 months, you worried that your food would run out before you got the money to buymore.Never true05/24/2025Within the past 12 months, the food you bought just didn't last and you didn't have money to get more.Never true05/24/2025rea Deprivation IndexAnswerDate RecordedNational Score (1-100), lower number is lower pwdg560402/18/2025State Score (1-10), lower number is lower hpxl10202/18/2025Data from: https://www.neighborhoodatlas.medicine.[facility].edu/. Last address used for ctgruxzorgn[address]02/18/2025CommentsNoSex and Gender InformationValueDate RecordedSex Assigned at CvfluBptobv76/11/2021 6:50 PM EDT Legal VdfQslgda21/12/2016 10:17 AM ESTGender YyhoulbhUdeijb37/11/2021 6:50 PM EDTSexual JmwyuqhpbfkMjplfnhg74/11/2021 6:50 PM EDTdocumented as of this encounter Functional Status * Are you deaf or do you have serious difficulty hearing?AnswerDate of FhdwmibmohAvzxrlGa37/15/2021 11:44 AM Ana Frances RN * Are you blind or do you have serious difficulty seeing, even when wearing glasses?AnswerDate of KwvcexhtvkTgmhjtCe04/15/2021 11:44 AM Ana Frances RN * Do you have serious difficulty walking or climbing stairs?AnswerDate of IijkijlsfnSgcjhvMz56/15/2021 11:44 AM Ana Frances RN * Do you have difficulty dressing or bathing?AnswerDate of AssessmentAuthorNo 08/22/2021 11:44 AM Ana Frances RN * Because of a physical, mental, or emotional condition, do you have difficulty doing errands alone such as visiting a doctor's office or shopping?AnswerDate of GlkcyxeurfJvssbqDp90/15/2021 11:44 AM Ana Frances RN documented as of this encounter Mental Status * Because of a physical, mental, or emotional condition, do you have serious difficulty concentrating, remembering, or making decisions?AnswerEntry Date VefjgtRr13/15/2021 11:44 AM Ana Frances RN documented in this encounter Progress Notes * Maude Tse [facility] - 06/28/2025 10:00 AM EDT Images from the original note were not included. [facility] Department of Medical Genetics Consultation Note Genetic Counselor: Kayleigh Tse MS (Adasia), [facility] Patient: Betty Patiño Patient Name and confirmed at initiation of visit. This visit was conducted via Yoono. Ihcarole communicated my name and active licensure. The patient's identity and physical location were verified at the time of this visit. Either the patient or their legal public relations representative has been informed of the risks and benefits of -- and alternatives to -- treatment through a remote evaluation and consents to proceed with the evaluation remotely. HIGH LEVEL SUMMARY: The patient's family history is potentially suggestive of a hereditary cancer syndrome. The patient provided informed consent for the Multi-Cancer panel through [facility]. Results are expected in 1-2 weeks from the time of sample collection. Patient plans to have blood drawn on July 04. IDENTIFICATION AND CHIEF COMPLAINT: Brittany Ramirez MD requested a consultation for genetic counseling and risk assessment for Maribel Patiño, a 30 year old female, for discussion of the patient's family history of breast cancer. Betty presents to clinic today to discuss the possibility of a genetic predisposition to cancer, andto further clarify their risks, as well as their family members' risks for cancer. RELEVANT MEDICAL HISTORY: Betty is a 30 year old female with no personal history of cancer. 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 Significant diagnoses are listed below: FAMILY HISTORY Problem Relation Age of Onset Cervical Cancer Mother Heart disease Maternal Grandmother Multiple Sclerosis Maternal Grandmother Bilateral Breast Cancer Maternal Grandmother 30 - 39 bilateral mastectomy possible genetic testing - limited details Diabetes Paternal Grandmother Breast Cancer Paternal Grandmother 40 - 49 positive genetic testing reported - no records Lymphoma Half-brother 21 Uterine Cancer Maternal Aunt 30 - 39 Breast Cancer Other dx late 50s Cancer Other met cancer including colon and prostate Cancer Other mouth tobacco/dip use reported Cervical Cancer Other Of note, the patient reports that her paternal grandmother may have had positive genetic testing - although details were largely unknown. No records were available to review. A copy of the patient's pedigree will be available under the scanned documents tab following today's visit. GENETIC COUNSELING RISK ASSESSMENT, DISCUSSION, AND SUGGESTED FOLLOW UP: The patient's family history of cancer is potentially suggestive of a hereditary cancer syndrome. The patient meets NCCN testing criteria since her paternal grandmother was diagnosed with breast cancer younger than age 50 and her maternal grandmother had bilateral breast cancer. We discussed thatthe most informative person to undergo genetic testing is a family member with a history of cancer.The patient's paternal grandmother may have a history of positive genetic testing - details were largely unclear/unknown. No family member genetic testing records were available for review. Therefore, we reviewed the limitations of interpreting test results for an unaffected individual. We discussed the following: Approximately 5-10% of cancer is due to an underlying hereditary cancer syndrome Inheritance of hereditary cancer syndromes and possible familial implications of genetic testing Potential emotional impacts of undergoing genetic testing Different types of results Positive: a mutation was identified associated with a hereditary cancer syndrome indicating a potentially higher risk to develop one or more types of cancer Negative: no mutations were identified indicating a low likelihood of a hereditary cancer syndrome in the patient Uncertain: a variant of uncertain significance (VUS) was identified, however, there is insufficientdata available to determine the clinical impact of the variant Rare possibility of unexpected findings The Genetic Information Nondiscrimination Act (NAGA) protects individuals from being discriminated against for health insurance or employment purposes (with certain exceptions) based on their genetictesting results. NAGA does not apply to life insurance, correction care insurance, nor disability insurance. Other limitations may also apply. Genetic testing may help the patient's care providers tailor medical management. Individuals with positive genetic testing may consider changes to their cancer surveillance or management such as increased cancer screening, prophylactic surgeries, or targeted treatment options. Individuals with negative or nondiagnostic testing should discuss the appropriate cancer screening with their providers based on their personal and family history. Based on this assessment of the patient's family and personal history, genetic testing is recommended. After considering the risks, benefits, and limitations, the patient chose to pursue and provided informed consent for the following testing: Multi-Cancer panel through [facility]. The Multi-Cancer Panel includes the following 70 genes: AIP, ALK, APC, NATHANIEL, AXIN2, BAP1, BARD1, BLM, BMPR1A, BRCA1, BRCA2, BRIP1, CDC73, CDH1, CDK4, CDKN1B, CDKN2A, CHEK2, CTNNA1, DICER1, EGFR, EPCAM, FH, FLCN, GREM1, HOXB13, KIT, LZTR1, MAX, MBD4, MEN1, MET, MITF, MLH1, MSH2, MSH3, MSH6, MUTYH, NF1, NF2, NTHL1, PALB2, PDGFRA, PMS2, POLD1, POLE, POT1, WQLAQ1F, PTCH1, PTEN, RAD51C, RAD51D, RB1, RET, SDHA, SDHAF2, SDHB, SDHC, SDHD, SMAD4, SMARCA4, SMARCB1, SMARCE1, STK11, SUFU, JVYI930, TP53, TSC1, TSC2, VHL The Multi-Cancer panel looks at genes associated with cancers of the breast, gynecologic tract (ovarian, uterine/endometrial), gastrointestinal system (colorectal, gastric, pancreatic), endocrine glands (thyroid, parathyroid, pituitary, adrenal glands), genitourinary tract (renal/urinary tract, prostate), skin (melanoma, basal cell carcinoma), and brain/nervous system. We discussed that [employer] Board may contact the patient regarding billing. The patient should watch for this communication and respond promptly. The patient should contact [employer] directly with anybilling questions (ph. [phone] or [email or web address]). We will contact the patient by myChart or telephone to review these results. A follow up genetic counseling visit may be recommended depending on genetic testing results and patient preference. I spent a total of 45 minutes on the date of the service, which included preparing to see the patient, xuha-jl-ewwx patient care, completing clinical documentation, obtaining and/or reviewing separately obtained history, counseling and educating the patient/family/caregiver, ordering tests, communic ating with other HCPs (not separately reported), independently interpreting results (not separatelyreported), communicating results to the patient/family/caregiver, and care coordination (not separately reported). This plan is being carried out under the oversight of Dr. Oma Machuca MD, PhD. This note will also be sent to the referring provider via the electronic medical record. Kayleigh Tse MS (Adasia), [facility] Licensed, Certified Genetic Counselor EPIC CC: MD Oma Barrera MD, PhD documented in this encounter Plan of Treatment DateTypeDepartmentCare Team (Latest Contact Info)Tryuomkdubv28/03/2025 9:00 AM [facility] General Surgery [address] [place] [address] [place] [address] pre-op08/10/2025 10:40 AM ESTPAT Pre Anesthesia [address] [place] [address] pre-op08/15/2025 1:[facility] [address] [place] [address] Isak López [place] [address] [place] [address] pre-op08/30/2025 7:30 AM ESTHospital Encounter [facility] Operating Room [address] [place] [address] Isak López MD [address] [place] [address] Morbid obesity due to excess calories (HCC) [E66.01]08/30/2025 7:30 AM EST - 08/30/2025 11:15 AM ESTSurgery [facility] [address] [place] [address] Isak López MD [address] [place] [address] GASTRECTOMY, GASTRIC RESTRICTIVE PARTIAL (50 TO 100 CM COMMON CHANNEL) TO LIMIT NSPHPKSVXU86/31/2025 11:00 AM ESTOffice Visit General Surgery [address] [address] Maribel Park, FREIDA.RECORDS SPECIALIST [address] [address] 1 week post op DS 08/30 Ajiukti0909/14/2025 11:00 AM ESTEducation General Surgery [address] [place] [address] Veronica Edouard, GINO [address] [place], [place] [id number] 2 Week post op DS 08/3010/03/2025 11:00 AM ESTOffice Visit General Surgery [address] [place] [address] Maribel Park, FREIDA.RECORDS SPECIALIST [address] [address] 1 month post op DS 08/30 Cxtobsc7910/05/2025 11:15 AM ESTDistance [facility] General Surgery BMI PSY [address] [place] [address] Gudelia Byers, PhD [address] [place] [address] 1 month post op11/30/2025 1:30 PM [facility] [address] [place] [address] Veronica Edouard, GINO [address] [place] [address] 3 month post op DS 08/30 Olzlxny7712/06/2025 11:00 AM EDTDistance [facility] General Surgery [address] [place], [place] [id number] Maribel Park, MEDICAL AND SCIENTIFIC ILLUSTRATOR.RECORDS SPECIALIST [address] [address] Maria Guzman [address] [id number] 3 month post op DS 08/30 GutnickNameTypePriorityAssociated DiagnosesOrder ScheduleNVTA [facility] HEREDITARY DIAGNOSTIC CANCER PANELLabRoutine Family history of breast cancer- MGM in 30's and PGM in 40's Family history of uterine cancer Expected: 06/28/2025, Expires: 09/27/2025NamePriorityAssociated Diagnoses Date/TimeGASTRECTOMY, GASTRIC RESTRICTIVE PARTIAL (50 TO 100 CM COMMON CHANNEL) TO LIMIT ABSORPTION Morbid obesity due to excess calories (HCC) 08/30/2025 7:30 AM ESTdocumented as of this encounter Goals GoalPatient Goal TypeAssociated ProblemsRecent ProgressPatient-Stated?Author Bariatric Surgery Authorization Fisher Trap Care PlanBariatric Surgery Authorization Care CompanionMariela Kay Bariatric Surgery [place]rap Care PlanBariatric Surgery Care CompanionItalia Zaragoza Autogenerated Goal Care PlanAutogenerated ProblemLang Zaragozaocumented as of this encounter Visit Diagnoses Diagnosis Family history of uterine cancer- Primary Family history of malignant neoplasm of genital organ, other Family history of breast cancer- MGM in 30's and PGM in 40's Family history of malignant neoplasm of breast Morbid obesity due to excess calories (HCC) documented in this encounter Additional Health Concerns Active ProblemsNoted DateDiagnosed DateBariatric Surgery Authorization Care Unrnbpsfj80/24/2025Bariatric Surgery Care Gysfsaory98/13/2025utogenerated Iyhrxyn8806/20/2025documented as of this encounter Care Teams Team MemberRelationshipSpecialtyStart DateEnd Date Tre Tripp DO [address] [facility] [address] [place] [phone] PCP - GeneralFamily Medicine10/20/15documented as of this encounter
--- OUTSIDE RECORDS SUMMARY | 2025-07-08 07:55 | XMS_ITS | Encounter Summary ---
Author Organization [facility] Address [address] [place] [address] Care Team Providers Care Vice President Network Name Role Phone Valenciacarlos Tre Watts Primary Care Provider + Source Comments In the event this information is protected by the Federal Confidentiality of Alcohol and Drug AbusePatient Records regulations: The Federal rules restrict any use of the information to criminally investigate or prosecute any alcohol or drug abuse patient.[facility] Encounter Details DateTypeDepartmentCare Team (Latest Contact Info)Bqfkoyttyvf83/25/2025 Get Medical Advice General Surgery [address] [phone] Kim Carey, MACHINIST HELPER [employer]INE[employer] [address] [place] [address] Question Social History Tobacco UseTypesPacks/DayYears UsedDateSmoking Tobacco: FormerCigarettes Smokeless Tobacco: Never Comments:nicotine free vape Alcohol UseStandard Drinks/WeekCommentsNot Currently0 (1 standard drink = 0.6 oz pure alcohol)nonePHQ-2AnswerDate RecordedPHQ-2 gwsut477Hunger Vital Sign AnswerDate RecordedWithin the past 12 months, you worried that your food would run out before you got the money to buymore.Never true05/24/2025Within the past 12 months, the food you bought just didn't last and you didn't have money to get more.Never true05/24/2025rea Deprivation IndexAnswerDate RecordedNational Score (1-100), lower number is lower agol222302/18/2025State Score (1-10), lower number is lower gmqc45402/18/2025Data from: https://www.neighborhoodatlas.[facility].edu/. Last address used for otltbgzq[address]/18/2025CommentsNoSex and Gender InformationValueDate RecordedSex Assigned at XujpqQmeduv84/11/2021 6:50 PM EDT Legal UvdXtnvud42/12/2016 10:17 AM ESTGender OzraygsdXzdysk08/11/2021 6:50 PM EDTSexual HeupogrprrnXzcgslth58/11/2021 6:50 PM EDTdocumented as of this encounter Functional Status * Are you deaf or do you have serious difficulty hearing?AnswerDate of OqatztxvfcEzloskDf73/15/2021 11:44 AM Ana Frances RN * Are you blind or do you have serious difficulty seeing, even when wearing glasses?AnswerDate of WjehjozajnHhgtmqEt86/15/2021 11:44 AM Ana Frances RN * Do you have serious difficulty walking or climbing stairs?AnswerDate of JvcbcdfdesUteuzeGg81/15/2021 11:44 AM Ana Frances RN * Do you have difficulty dressing or bathing?AnswerDate of AssessmentAuthorNo 08/22/2021 11:44 AM Ana Frances RN * Because of a physical, mental, or emotional condition, do you have difficulty doing errands alone such as visiting a doctor's office or shopping?AnswerDate of EpxbglvdzjBcbbggMs07/15/2021 11:44 AM Ana Frances RN documented as of this encounter Mental Status * Because of a physical, mental, or emotional condition, do you have serious difficulty concentrating, remembering, or making decisions?AnswerEntry Date HfupnoLz78/15/2021 11:44 AM Ana Frances RN documented in this encounter Plan of Treatment DateTypeDepartmentCare Team (Latest Contact Info)Grzlgfyvsad64/03/2025 9:00 [facility] [address] [place] [address] Veronica Edouard, RD [address] [place] [address] pre-op08/10/2025 10:40 AM ESTPAT Pre Anesthesia [address] [place] [address] pre-op08/15/2025 1:00 PM [facility] [address] [place] [address] Isak López [place] [address] [place] [address] pre-op08/30/2025 7:30 AM ESTHospital Encounter [facility] Operating Room [address] [id number] Isak Ló[place] [address] [place] [address] Morbid obesity due to excess calories (HCC) [E66.01]08/30/2025 7:30 AM EST - 08/30/2025 11:15 AM ESTSurgery [facility] [address] [place] [address] Isak López [place] [address] [place] [address] GASTRECTOMY, GASTRIC RESTRICTIVE PARTIAL (50 TO 100 CM COMMON CHANNEL) TO LIMIT FHBWRJZCMT68/31/2025 11:00 AM ESTOffice Visit General Surgery [address] [address] Maribel Park, FREIDA.[employer] [address] [address] 1 week post op DS 08/30 Nhnyiur2909/14/2025 11:00 AM ESTEducation General Surgery [address] [place] [address] [place] [address] 2 Week post op DS 08/30 Rjkdwmx6710/03/2025 11:00 AM ESTOffice Visit General Surgery [address] [place] [address] Maribel Park, MACHINIST HELPER [employer]INE[employer] [address] [address] 1 month post op DS 08/30 Tzgpufx7310/05/2025 11:15 AM ESTDistance [facility] General Surgery BMI PSY [address] [place] [address] Gudelia Byers, PhD [address] [place] [address] 1 month post op11/30/2025 1:30 PM EDTEducation General Surgery [address] [place] [address] [place] [address] 3 month post op DS 08/30 Mwntnkf9012/06/2025 11:00 AM EDTDistanAPI Healthcare General Surgery [address] [facility] [address] [place] [address] Maribel Park, MACHINIST HELPER [employer]INE.[employer] [address] [address] 3 month post op DS 08/30 GutnickNamePriorityAssociated DiagnosesDate/Time GASTRECTOMY, GASTRIC RESTRICTIVE PARTIAL (50 TO 100 CM COMMON CHANNEL) TO LIMIT ABSORPTION Morbid obesity due to excess calories (HCC) 08/30/2025 7:30 AM ESTdocumented as of this encounter Goals GoalPatient Goal TypeAssociated ProblemsRecent ProgressPatient-Stated?Author Bariatric Surgery Authorization Fitter Machinist Care PlanBariatric Surgery Authorization Care CompanionMariela Kay Bariatric Surgery F[employer] Machinist Care PlanBariatric Surgery Care CompanionNoShanelfernandodavy [place] Autogenerated Goal Care PlanAutogenerated ProblemNoWes Babinydocumented as of this encounter Visit Diagnoses Not on filedocumented in this encounter Additional Health Concerns Active ProblemsNoted DateDiagnosed DateBariatric Surgery Authorization Care Viimiaeqx08/24/2025ariatric Surgery Care Tnfgzwlpa38/13/2025utogenerated Hutwaaf4106/20/2025documented as of this encounter Care Teams Team MemberRelationshipSpecialtyStart DateEnd Date Tre Tripp DO [address] [facility] [address] [place] [phone] PCP - GeneralFamily Medicine10/20/15documented as of this encounter
--- OUTSIDE RECORDS SUMMARY | 2025-07-08 07:55 | XMS_ITS | Clinical Summary ---
Author Organization [facility] [place] [facility] [address] Care Team Providers Care Joist Setter Name Role Phone Tre Tripp DO Primary Care Provider + Allergies Active AllergyReactionsCriticalityNoted WfcgTgovauynNlvpogtqyyoHpnpyvt89/15/2021 Tolerated cephalosporins 08/19/2021 Medications * This document contains information received from the source organization and may not represent a complete record from that organization. MedicationSigDispense QuantityRefillsLast FilledStart DateEnd DateStatus Cholecalciferol, Vitamin D3, 25 mcg (1,000 unit) cap Take 1 capsule by mouth once daily. 60 capsule 1105Active ferrous sulfate (IRON) 325 mg (65 mg iron) tablet Take 1 tablet by mouth once daily. 30 tablet 5Active dulaglutide (TRULICITY) 1.5 mg/0.5 mL pen injector Inject 1.5 mg subcutaneously one time a week. 6 mL 5Active loperamide (IMODIUM A-D) 2 mg cap(s) Take 1 capsule by mouth two times a day as needed. 60 capsule 5Active dulaglutide (TRULICITY) 3 mg/0.5 mL pen injector Inject 3 mg subcutaneously one time a week. 6 mL Discontinued Active Problems ProblemNoted DateDiagnosed DateFamily history of breast cancer- MGM in 30's and PGM in 40's05Class 3 severe obesity due to excess calories without serious comorbidity with body mass index (BMI) greater than or equal to 70 in adult08/18/2021 Assessment & Plan (03/03/2025 5:03 PM EDT): Assessment: Betty reports significant weight gain post- with current BMI over 70. She has tried multiple weight loss methods including medications and bariatric diet. Currently working with [facility] Bariatric Department and attempting smoking cessation as a prerequisite for gastric bypass. Betty is requesting a hysterectomy for weight loss as this has led to significant weight loss in many of her family members, including her mother. She was also told by her family doctor that her body is reabsorbing her breast milk and eating those calories which is contributing to herinability to lose weight which is why she needs her uterus removed. I explained that I would not rec ommend or offer a hysterectomy for weight loss or concerns. Based on my experience and current medical evidence, the uterus does not directly affect weight, and a hysterectomy is not a standard treatment for weight management. Additionally, insurance does not cover hysterectomy for weightloss as it is not an approved indication for the procedure. She reiterated that removal of the uterus and ovaries in her mother led to significant weight loss. I then advised that oophorectomy would also not be recommended or offered even if there was an indication for hysterectomy due to the significant risks to cardiovascular and orthopedic health from surgical menopause at such a you age. I offered a referral to our weight management team for further evaluation and potential medical interventions and encouraged her to continue working with bariatric department and focus on smoking cessation. She was adamant that she needed a hysterectomy to loose weight. I again discussed that hysterectomy is not recommended for weight loss and explained the risks associated with surgery at current BMI. I expressed understanding of her frustration with the medical system and the challenges she is facing with her weight loss journey. I again explained what I could offer her in terms of referrals andadditional work up and testing.. I also offered a second opinion from another laundry press operator within the [facility] which she declined as five other doctors have told me that this is what I need but no-one takes my insurance . At this point she began shouting that I was doing nothing for her and that I was not willing to help. I calmly explained that I am trying to offer advice and solutions within my scope of practice and under the guiding principle of do no harm. She then told me that I am just like every other male laundry press operator and just view her as an incubator. It was at this point that I terminated the visit as we were no longer having a productive, therapeutic discussion. 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 Wants Salpingectomy if has to have C/S. Tubal Consent signed 05/29 Encounters * This document contains information received from the source organization and may not represent a complete record from that organization. DateTypeDepartmentCare NcofIlcqjciapda16/27/2025 Get Medical Advice General Surgery BMI PSY [address] [place] [address] Lianna Traylor, PhD Jtgyxexz44/25/2025 Get Medical Advice General Surgery [address] [id number] Kim Carey APRN.PILE DRIVER Zogaqbor27/21/2025 10:00 AM [facility] [address] [place] [address] Maude Tse LGC Family history of uterine cancer (Primary Dx); Family history of breast cancer- MGM in 30's and PGM in 40'/ Patient Msg [facility] [address] [place] [address] Provider, Ccf Please Read: Genetic Testing Fqtbihtezhx80/21/2025 Patient Msg [facility] [address] [place] [address] Maude Tse Donita Genetic Testing Billing Thnektrwwen34/20/4809Maexqx48/14/2025 Patient Msg General Surgery [address] [place] [address] Provider, Ccf Your Post Operative appointments have been scheduled after your 08/30/[address] Isak López06/20/2025Patient Update General Surgery [address] [place] [address] Isak López MD 08/30/2025 (DS)06/19/2025 Get Medical Advice General Surgery [address] [place] [address] Kim Carey APRN.PILE DRIVER Jkkgrjbyo05/10/2025Telephone General Surgery [address] [place] [address] Isak López MD Schedule Surgery; Workforce Investment Act Career Manager - Other06/17/2025 Get Medical Advice General Surgery BMI PSY [address] [place], [place] [id number] Lianan Traylor, PhD Opeknins61/09/2025 Get Medical Advice General Surgery [address] [place] [address] Kim Carey, FREIDA.PILE DRIVER Lurddzk2906/15/2025 Get Medical Advice General Surgery [address] [place] [address] Provider, Ccf Rwxidnny88/29/2025Patient Update General Surgery [address] [place] [address] Isak López MD Insurance Vlnvlocledtzx88/29/2025 Get Medical Advice General Surgery [address] [place] [address] Kim Carey APRN.PILE DRIVER Fjnjzsoy59/18/2025 Get Medical Advice General Surgery [address] [place] [address] Provider, Ccf Ybcbxue7505/26/2025 Get Medical Advice General Surgery BMI PSY [address] [place] [address] Lianna Traylor, PhD Ajfzlbil35/16/2025 3:15 PM [facility] [address] [place] [address] Dietary counseling (Primary Dx); BMI 60.0-69.9, adult (HCC)05/24/2025 Get Medical Advice General Surgery [address] [place] [address] Kim Carey APRN.PILE DRIVER Hsvndkfv07/16/2025 Patient Msg General Surgery [address] [place] [address] Provider, Ccf Nutrition Qqaqszosyjqzpzq33/15/2025 Patient Msg General Surgery [address] [place] [address] Kim Carey, SHADER AND TONER.PILE DRIVER Lab kvwbpll0405/17/2025 Get Medical Advice General Surgery [address] [place] [address] Provider, Ccf Ttozprbhssi74/27/2025 Get Medical Advice General Surgery [address] [place] [address] Kim Carey, SHADER AND TONER.PILE DRIVER Paxyxnbk81/25/2025 Get Medical Advice General Surgery [address] [place] [address] Kim Carey, SHADER AND TONER.PILE DRIVER Type of Yasqoht6705/02/2025 Get Medical Advice General Surgery [address] [place] [address] Isak López MD Type of Jdeddub3504/29/2025 Patient Msg General Surgery [address] [place] [address] Provider, Ccf Appointment Nwmbuzf0304/28/2025 2:45 [facility] [address] [place] [address] Janice King, SHADER AND TONER.PILE DRIVER Class 3 obesity (HCC) (Primary Dx)04/28/2025 Get Medical Advice General Surgery [address] [phone] Kim Carey, SHADER AND TONER.PILE DRIVER Gtweqzl1604/25/2025 4:00 PM EDT[facility] General Surgery [address] [phone] Kim Carey, SHADER AND TONER.PILE DRIVER Class 3 severe obesity due to excess calories without serious comorbidity with body mass index (BMI) of 60.0 to 69.9 in adult (HCC) (Primary Dx); Pre-op tdwkdww9604/25/2025 Patient Msg General Surgery [address] [place], [place] [phone] Kim Carey, SHADER AND TONER.PILE DRIVER end of appt04/24/20255476Erbhpf31/14/2025 11:00 AM EDT[facility] BMI PSY [address] [place], [place] [phone] Lianna Traylor, PhD Psychological factors affecting medical condition (Primary Dx); Class 3 severe obesity with serious comorbidity and body mass index (BMI) greater than or equal to 70 in adult (HCC); History of marijuana use; 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); Opioid use disorder in remission; History of trauma; History of nicotine dqigut6404/14/2025 3:00 PM EDT[facility] General Surgery [address] [phone] Isak López MD Class 3 severe obesity due to excess calories with body mass index (BMI) greater than or equal to 70 in adult, unspecified whether serious comorbidity present (HCC) (Primary Dx); Gynecomastia, fieczj5304/12/2025 Get Medical Advice General Surgery BMI PSY [address] [place] [address] Lianna Traylor, PhD Nicotine test04/08/2025 Get Medical Advice General Surgery [address] [place], [place] [id number] Provider, Ccf Liquid Diet04/07/2025 10:15 AM [facility] General Surgery BMI PSY [address] [place] [address] Lianna Traylor, PhD Psychological factors affecting medical condition (Primary Dx); Class 3 severe obesity with serious comorbidity and body mass index (BMI) greater than or equal to 70 in adult (HCC); Nicotine vapor product user; History of trauma; Opioid use disorder in remission; History of marijuana use; 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)from Last 3 Months Immunizations ImmunizationAdministration DatesNext DueCOVID-19 original vaccine, full dose, monovalent (MODERNA)04/03/2021tetanus diphtheria pertussis (Tdap) vaccine, age 7+ yr (ADACEL, BOOSTRIX)07/11/2021 Family History Medical HistoryRelationCommentsLymphomaHalf-brother 1Uterine CancerMaternal Aunt Bilateral Breast CancerMaternal Grandmotherbilateral mastectomypossible genetic testing - limited detailsHeart diseaseMaternal GrandmotherMultiple Sclerosis Maternal GrandmotherCervical CancerMotherBreast CancerOther 1dx late 50sCancer Other 3met cancer including colon and prostateCancerOther 4mouth tobacco/dip use reportedCervical CancerOther 7Breast CancerPaternal Grandmotherpositive genetic testing reported - no recordsDiabetesPaternal GrandmotherRelationStatusComments Daughter 1DeceasedDaughter 2AliveDaughter 3DeceasedFatherAliveHalf-brother 1 AliveHalf-brother 2AliveHalf-siblingAliveMaternal AuntAliveMaternal Grandfather Aliveno informationMaternal GrandmotherAliveMaternal cousinAliveMotherAliveOther 1AliveOther 2AliveOther 3DeceasedOther 4AliveOther 5Aliveno informationOther 6 Aliveno informationOther 7AliveOther 8Aliveno informationPaternal Grandfatherno informationPaternal GrandmotherAliveSon 1AliveSon 2Deceased Social History Tobacco UseTypesPacks/DayYears UsedDateSmoking Tobacco: FormerCigarettes Smokeless Tobacco: Never Tobacco Cessation:Counseling Given: Not Answered Comments:nicotine free vape Alcohol UseStandard Drinks/WeekCommentsNot Currently0 (1 standard drink = 0.6 oz pure alcohol)nonePHQ-2AnswerDate RecordedPHQ-2 xxmiz814Hunger Vital Sign AnswerDate RecordedWithin the past 12 months, you worried that your food would run out before you got the money to buymore.Never true05/24/2025Within the past 12 months, the food you bought just didn't last and you didn't have money to get more.Never true05/24/2025rea Deprivation IndexAnswerDate RecordedNational Score (1-100), lower number is lower ytdw015902/18/2025State Score (1-10), lower number is lower jtmp48502/18/2025Data from: https://www.neighborhoodatlas.medicine.[facility].edu/. Last address used for kovcxagsddm[address]/18/2025CommentsNoSex and Gender InformationValueDate RecordedSex Assigned at QyahiYsfpme68/11/2021 6:50 PM EDT Legal MdhCjmqpy60/12/2016 10:17 AM ESTGender BdandksaQahyht89/11/2021 6:50 PM EDTSexual YhfbgkhbybqBykeoxhv75/11/2021 6:50 PM EDT Last Filed Vital Signs Vital SignReadingTime TakenCommentsBlood Qxzfwcvo600/8203/03/2025 9:56 AM EDT Bkrmz604903/03/2025 9:56 AM ISVVazjsqodbyr61.5 ??C (97.7 ??F)08/22/2021 9:41 AM ESTRespiratory Zitq814610/23/2020 9:41 AM ESTOxygen Ihyeymcupw95%08/22/2021 9:41 AM ESTInhaled Oxygen Concentration--Pqlkae531.6 kg (336 lb 8 oz)05/24/2025 3:06 PM VSYQmllmmyqDabfoc802.9 cm (4' 11 )04/01/2025 9:23 AM EDTBody Mass Index67.96 04/01/2025 9:23 AM EDT Plan of Treatment DateTypeDepartmentCare Team (Latest Contact Info)Ratzpovqdil77/03/2025 9:00 AM [facility] General Surgery [address] [place] [address] [place] [address] pre-op08/10/2025 10:40 AM ESTPAT Pre Anesthesia [address] [place] [address] pre-op08/15/2025 1:00 PM [facility] General Surgery [address] [place] [address] Isak Ló[place] [address] [place] [address] pre-op08/30/2025 7:30 AM ESTHospital Encounter [facility] Operating Room [address] [place], [place] [phone] Isak López MD [address] [place] [address] Morbid obesity due to excess calories (HCC) [E66.01]08/30/2025 7:30 AM EST - 08/30/2025 11:15 AM ESTSurgery [facility] [address] [place] [address] Isak López MD [address] [place] [address] GASTRECTOMY, GASTRIC RESTRICTIVE PARTIAL (50 TO 100 CM COMMON CHANNEL) TO LIMIT NSRUXACSXM76/31/2025 11:00 AM ESTOffice Visit General Surgery [address] [address] Maribel Park, SHADER AND TONER.PILE DRIVER [address] [address] 1 week post op DS 08/30 Bmeqnvp9509/14/2025 11:00 [facility] [address] [place] [address] Veronica Edouard, RD [address] [place] [address] 2 Week post op DS 08/30 Dbuesvh2910/03/2025 11:00 AM ESTOffice Visit General Surgery [address] [place] [address] Maribel Park, FREIDA.PILE DRIVER [address] [id number] 1 month post op DS 08/30 Leytkqx2010/05/2025 11:15 AM ESTDistance [facility] General Surgery BMI PSY [address] [place] [address] Gudelia Byers, PhD [address] [place] [address] 1 month post op11/30/2025 1:30 PM EDTEducation General Surgery [address] [place] [address] Veronica Edouard, RD [address] [place] [address] 3 month post op DS 08/30 Cqohirn2812/06/2025 11:00 AM EDT[facility] Surgery [address] [facility] [address] [place] [address] Maribel Park, SHADER AND TONER.PILE DRIVER [address] [id number] 3 month post op DS 08/30 GutnickNamePriorityAssociated DiagnosesDate/Time GASTRECTOMY, GASTRIC RESTRICTIVE PARTIAL (50 TO 100 CM COMMON CHANNEL) TO LIMIT ABSORPTION Morbid obesity due to excess calories (HCC) 08/30/2025 7:30 AM ESTHealth MaintenanceDue DateLast DoneCommentsAnxiety Spmlpinlh20/27/2014Depression Ssaqowqnt37/27/2014Hepatitis B Vaccine (1 of 3 - 19+ 3-dose series)02/01/2015HPV Vaccine (1 - 3-dose SCDM series)02/01/2023 Cervical Cancer Tsiumninn06/28/892147/, 10/03/2021, 1Covid-19 Vaccine ( season)/, 1DTaP,Tdap,Td Vaccine (2 - Td or Tdap)HIV OpryuzkvbFyrigrpxa84/28/2021Hepatitis C DtasufesvHnkpuzsjm28/28/2021Influenza VbqcjscZyiuasjjz80/19/2025 Goals GoalPatient Goal TypeAssociated ProblemsRecent ProgressPatient-Stated?Author Bariatric Surgery Authorization Production Machine Operator Care PlanBariatric Surgery Authorization Care CompanionMariela Kay Bariatric Surgery Production Machine Operator Care PlanBariatric Surgery Care CompanionNoTalya, [place] Autogenerated Goal Care PlanAutogenerated ProblemNoMazza, [place] Procedures Procedure NamePriorityDate/TimeAssociated DiagnosisCommentsEXTERNAL CARDIOLOGY 06/02/2025 12:07 PM EDT EXTERNAL LAB05/24/2025 3:10 PM EDT EXTERNAL LAB05/19/2025 3:16 PM EDT EXTERNAL LAB05/18/2025 1:08 PM EDT EXTERNAL LAB05/18/2025 12:14 PM EDT EXTERNAL LAB05/18/2025 11:15 AM EDT TOX SCREEN ROUT OAEloctxq71/04/2025 4:50 PM EDT History of marijuana use NICOTINE & METAB, JIFxpadru86/04/2025 4:50 PM EDT Nicotine vapor product user HPV W/CKMQZOKVWfigxec29/28/2022 11:28 AM EST HIV 1/2 COMBO WITH REFLEX TO NLCTBACLFRVLFDQKrwjcal24/28/2021 2:55 PM EDT HEPATITIS C ANTIBODY IA WITH NQQYWDYZXYSKBzcybcy38/28/2021 2:55 PM EDT from Last 3 Months or Most Recently Relevant to Health Maintenance Results * EXTERNAL CARDIOLOGY (06/02/2025 12:07 PM EDT) Narrative Authorizing ProviderResult TypeResult StatusExternal Provider HEAVENLYCCARDIOLOGY Final Result * EXTERNAL LAB (05/24/2025 3:10 PM EDT) Only the most recent of5 resultswithin the time period is included. Narrative Authorizing ProviderResult TypeResult StatusExternal Provider HEAVENLYCLABORATORY Final Result * TOXICOLOGY SCREEN, ROUTINE URINE (04/11/2025 4:50 PM EDT)ComponentValueRef RangeTest MethodAnalysis TimePerformed AtPathologist SignatureAmphetamines, HulmxJqmzsyqxOmktrlaj15/05/2025 4:48 AM [facility] Comment:Cutoff threshold at 1000 ng/mL.Barbiturates, UrineNegativeNegative 04/12/2025 4:48 AM [facility] LABComment:Cutoff threshold at 200 ng/mL.Benzodiazepines, MzvidDxqnefmrJfmletjp91/05/2025 4:48 AM EDT [facility] LABComment:Cutoff threshold at 200 ng/mL. Cannabinoids, EisppKxjvfkhmXpjnjqqn52/05/2025 4:48 AM [facility] LABComment:Cutoff threshold at 50 ng/mL.Cocaine, UrineNegativeNegative 04/12/2025 4:48 AM [facility] LABComment:Cutoff threshold at 300 ng/mL.Ethanol, Urine<11<11 mg/dL04/12/2025 4:48 AM [facility] LABFentanyl, MkkxqZlhyctdkMoqxqylh88/05/2025 4:48 AM [facility] LABComment:Cutoff threshold at 5 ng/mL.Opiates, Urine MbsxyggfBzdmyqrf14/05/2025 4:48 AM [facility] LABComment: Cutoff threshold at 300 ng/mL.Oxycodone, LqpjdTvzachtbOnxzpgmg33/05/2025 4:48 AM [facility] LABComment:Cutoff threshold at 100 ng/mL. Phencyclidine, YvekdWqdwfgwbGlkdgiqy09/05/2025 4:48 AM [facility] LABComment:Cutoff threshold at 25 ng/mL.Specimen (Source) Anatomical Location / LateralityCollection Method / VolumeCollection Time Received TimeUrineURINE SPECIMEN / UnknownNon Blood / Tavlxij6804/11/2025 4:50 PM EDT04/11/2025 4:50 PM EDT Narrative [facility] - 04/12/2025 4:48 AM EDT Immunoassay screen only. Cross reactivity with other substances can occur with immunoassay screening. Detection of any drug(s) in this urine toxicology panel is presumptive only. These tests are for medical purposes only and should not be used for compliance monitoring, legal, or forensic use. Samples should be within normal physiological conditions (e.g. pH). This assay does not include adulteration/specimen validity testing. In clinical settings, confirmatory testing is at the practitioner's discretion [1]. ??If clinicallyindicated, confirmation by high specificity, quantitative methodology, which includes adulteration/specimen validity testing, may be requested on the same specimen through Client Services ([phone]) if contacted within 48 hours of initial testing. [1]Substance Abuse and Mental Health Services Administration (2012). Clinical Drug Testing in Primary Care Technical Assistance Publication Series 32. Department of Health and Human Services, [place], p.10. Authorizing ProviderResult TypeResult StatusSermarisol Byers PhDLABORATORYFinal ResultPerforming OrganizationAddressCity/State/ZIP CodePhone Number [facility] [address] [phone], * NICOTINE & METAB, UR (04/11/2025 4:50 PM EDT)ComponentValueRef RangeTest MethodAnalysis TimePerformed AtPathologist SignatureUrine 3 [place] Cotinine<50 ng/mL04/15/2025 6:32 AM EDTARUP LABORATORIESUrin Anabasine Quant<5ng/mL 04/15/2025 6:32 AM EDTARUP LABORATORIESUrin Cotinine Quant<15ng/mL04/15/2025 6:32 AM EDTARUP LABORATORIESUrin Nicotine Quant<15ng/mL04/15/2025 6:32 AM EDT [facility]ATORIESComment: INTERPRETIVE INFORMATION: Nicotine and Metabolites, ?Urine, Quantitative Methodology: Quantitative Liquid Chromatography-Tandem Mass Spectrometry Positive cutoff: Nicotine ??15 ng/mL Cotinine ??15 ng/mL 5-PO-Eqnliypm 50 ng/mL Anabasine ?5 ng/mL For medical purposes only; not valid for forensic use. This test is designed to evaluate recent use of nicotine-containing products. ??Passive and active exposure cannot be discriminated definitively, although a cutoff of 100 ng/mL cotinine is frequently used for surgery qualification purposes. ?? For smoking cessation programs or compliance testing, the absence of expected drug(s) and/or drug metabolite(s) may indicate non-compliance, inappropriate timing of specimen collection relative to drug administration, poor drug absorption, diluted/adulterated urine, or limitations of testing. The concentration value must be greater than or equal to the cutoff to be reported as positive. Anabasine is included as a biomarker of tobacco use, versus nicotine replacement. ??Interpretive questions should be directed to the laboratory. This test was developed and its performance characteristics determined by [employer]. It has not been cleared or approved by the [place] Food and Drug Administration. This test was performed in a CLIA certified laboratory and is intended for clinical purposes. Performed By: [employer] [facility] [address] [place] [address] Vp Compliance: Chris Shahid MD, PhD CLIA Number: [id number] Specimen (Source)Anatomical Location / LateralityCollection Method / Volume Collection TimeReceived TimeUrineURINE SPECIMEN / UnknownNon Blood / Unknown 04/11/2025 4:50 PM EDT04/11/2025 4:50 PM EDT Narrative Authorizing ProviderResult TypeResult StatusSermarisol Byers PhDLABORATORYFinal ResultPerforming OrganizationAddressCity/State/ZIP CodePhone Number [employer] system master [address] [place] [address] * (ABNORMAL) HPV W/GENOTYPE (10/05/2021 11:28 AM EST)ComponentValueRef RangeTest MethodAnalysis TimePerformed AtPathologist SignatureHPV Type 16Positive for HPV DNA high risk type 16 by PCR(A)10/16/2021 12:59 PM ESTReg[facility] LaboratoriesHPV Type 18Negative for HPV DNA high risk type 18 by PCR. 10/16/2021 12:59 PM ESTRegency Hospital [facility] LaboratoriesHPV High Risk Other Negative for HPV DNA high risk types: 31,33,35,39,45,51,52,56,58,59,66,68 by PCR.10/16/2021 12:59 PM ESTRegency Hospital [facility] LaboratoriesComment: This test was developed and its performance characteristics determined by [facility]'s [facility] Pathology and Laboratory Medicine [place] ([facility]). It has not been cleared or approved by the FDA. -[facility] is regulated under CLIA as qualified to perform high-complexity testing. This test is used for clinical purposes. It should not be regarded as investigational or for research. Specimen (Source)Anatomical Location / LateralityCollection Method / Volume Collection TimeReceived TimeOTHER / Pxuqfgd8610/05/2021 11:28 AM EST10/15/2021 8:38 AM EST Narrative Authorizing ProviderResult TypeResult StatusBrandin Long MDLABORATORYFinal ResultPerforming OrganizationAddressCity/State/ZIP CodePhone Number [facility] [address] [place] [address] [facility] [address] [place] [address] * HIV 1 2 COMBO(AG/AB),WITH REFLEX TO DIFFERENTIATION (04/04/2021 2:55 PM EDT) ComponentValueRef RangeTest MethodAnalysis TimePerformed AtPathologist SignatureHIV 12 Combo (Ag/Ab)Non ReactiveNon Sfsrnhge56/29/2021 12:41 PM EDT [facility] LaboratoriesHIV 1/2 Ab ConfirmatoryTest Not Indicated 04/05/2021 12:41 PM EDTC[facility] LaboratoriesHIV InterpretationNegative 04/05/2021 12:41 PM EDTriHealth LaboratoriesComment: No evidence of HIV-1 or HIV-2 infection. Should recent infection be suspected, repeat testing may be considered 2-3 weeks after this draw. HIV Information: [place] Rev. Code 3701.243(E): This information has been disclosed to you from confidential records protected from disclosure by state law. ??You shall make no further disclosure of this information without the specific, written, and informed release of the individual to whom it pertains or as otherwise permitted by state law. A general authorization for the release of medical or other information is not sufficient for the purpose of the release of HIV test results or diagnoses. Specimen (Source)Anatomical Location / LateralityCollection Method / Volume Collection TimeReceived TimeBloodBLOOD SPECIMEN / Mzrutbc4304/04/2021 2:55 PM EDT 04/04/2021 2:56 PM EDT Narrative Authorizing ProviderResult TypeResult StatusKenncarlos Jada Mercedes WAYLABORATORYFinal ResultPerforming OrganizationAddressCity/State/ZIP CodePhone Number [facility] [address] [place] [address] [facility] [address] [place] [address] * HEP C AB IA W/CONF SCRN (04/04/2021 2:55 PM EDT)ComponentValueRef RangeTest MethodAnalysis TimePerformed AtPathologist SignatureHep C Antibody IANegative Aefrzafk10/29/2021 12:40 PM EDTCUpper Valley Medical Center LaboratoriesSpecimen (Source) Anatomical Location / LateralityCollection Method / VolumeCollection Time Received TimeBloodBLOOD SPECIMEN / Egpohvs1504/04/2021 2:55 PM EDT04/04/2021 2:56 PM EDT Narrative Authorizing ProviderResult TypeResult StatusBrandin Jada Mercedes WAYLABORATORYFinal ResultPerforming OrganizationAddressCity/State/ZIP CodePhone Number [facility] [address] [place] [address] [facility] [address] [place] [address] from Last 3 Months or Most Recently Relevant to Health Maintenance Additional Health Concerns Active ProblemsNoted DateDiagnosed DateBariatric Surgery Authorization Care Hdwbonhlc47/24/2025Bariatric Surgery Care Zqmwvgrhl71/13/2025Autogenerated Pigecls9006/20/2025 Insurance Care Teams Team MemberRelationshipSpecialtyStart DateEnd Date Tre Tripp DO [address] [facility] [address] [place] [phone] PCP - GeneralFamily Medicine10/20/15
--- OUTSIDE RECORDS SUMMARY | 2025-07-08 07:55 | XMS_ITS | Encounter Summary ---
Author Organization [facility] Address [address] [place] [address] Care Team Providers Care Child Caregiver Private Home Name Role Phone Valenciacarlos Tre Watts Primary Care Provider + Source Comments In the event this information is protected by the Federal Confidentiality of Alcohol and Drug AbusePatient Records regulations: The Federal rules restrict any use of the information to criminally investigate or prosecute any alcohol or drug abuse patient.[facility] Encounter Details DateTypeDepartmentCare Team (Latest Contact Info)Uvcpqldbwmb19/27/2025 Get Medical Advice General Surgery BMI PSY [address] [place] [address] Lianna Traylor, PhD [address] [place] [address] Question Social History Tobacco UseTypesPacks/DayYears UsedDateSmoking Tobacco: FormerCigarettes Smokeless Tobacco: Never Comments:nicotine free vape Alcohol UseStandard Drinks/WeekCommentsNot Currently0 (1 standard drink = 0.6 oz pure alcohol)nonePHQ-2AnswerDate RecordedPHQ-2 dxdmz526Hunger Vital Sign AnswerDate RecordedWithin the past 12 months, you worried that your food would run out before you got the money to buymore.Never true05/24/2025Within the past 12 months, the food you bought just didn't last and you didn't have money to get more.Never true05/24/2025rea Deprivation IndexAnswerDate RecordedNational Score (1-100), lower number is lower aupz225902/18/2025State Score (1-10), lower number is lower mnnq16902/18/2025Data from: https://www.neighborhoodatlas.[facility].edu/. Last address used for seqgickubvf[address]/18/2025CommentsNoSex and Gender InformationValueDate RecordedSex Assigned at AkicmGnxojn83/11/2021 6:50 PM EDT Legal XwpJgsesm03/12/2016 10:17 AM ESTGender PmqhdyrkYialds31/11/2021 6:50 PM EDTSexual GaxicinfagyIjpjapby52/11/2021 6:50 PM EDTdocumented as of this encounter Functional Status * Are you deaf or do you have serious difficulty hearing?AnswerDate of SlvwmbmmodJaukdjOi66/15/2021 11:44 AM Ana Frances RN * Are you blind or do you have serious difficulty seeing, even when wearing glasses?AnswerDate of QdifspidspWhelazVt26/15/2021 11:44 AM Ana Frances RN * Do you have serious difficulty walking or climbing stairs?AnswerDate of LcwovenupjPcrstfZp68/15/2021 11:44 AM Ana Frances RN * Do you have difficulty dressing or bathing?AnswerDate of AssessmentAuthorNo 08/22/2021 11:44 AM Ana Frances RN * Because of a physical, mental, or emotional condition, do you have difficulty doing errands alone such as visiting a doctor's office or shopping?AnswerDate of CcctljkxgyJupvwgSr51/15/2021 11:44 AM Ana Frances RN documented as of this encounter Mental Status * Because of a physical, mental, or emotional condition, do you have serious difficulty concentrating, remembering, or making decisions?AnswerEntry Date AusxfoRk68/15/2021 11:44 AM Ana Frances RN documented in this encounter Plan of Treatment DateTypeDepartmentCare Team (Latest Contact Info)Ckniwbispdq18/03/2025 9:00 [facility] [address] [place] [address] Veronica Edouard, RD [address] [place] [address] pre-op08/10/2025 10:40 AM ESTPAT Pre Anesthesia [address] [place] [address] pre-op08/15/2025 1:[address] [facility] [address] [place] [address] Isak Ló[place] [address] [place] [address] pre-op08/30/2025 7:30 AM ESTHospital Encounter [facility] Operating Room [address] [id number] Isak Ló[place] [address] [place] [address] Morbid obesity due to excess calories (HCC) [E66.01]08/30/2025 7:30 AM EST - 08/30/2025 11:15 AM ESTSurgery [facility] [address] [place] [address] Isak Ló[place] [address] [place] [address] GASTRECTOMY, GASTRIC RESTRICTIVE PARTIAL (50 TO 100 CM COMMON CHANNEL) TO LIMIT RYHPLZKKAH95/31/2025 11:00 AM ESTOffice Visit General Surgery [address] [address] [place], HIGHWAY TRAFFIC CONTROL TECHNICIAN.AUTOMATIC STEEL TIE ADJUSTER [address] [address] 1 week post op DS 08/30 Xcqubna9809/14/2025 11:00 AM ESTEducation General Surgery [address] [place] [address] [place], [place] [id number] 2 Week post op DS 08/30 Ktqioac6710/03/2025 11:00 AM ESTOffice Visit General Surgery [address] [place] [address] Maribel Park, HIGHWAY TRAFFIC CONTROL TECHNICIAN.AUTOMATIC STEEL TIE ADJUSTER [address] [address] 1 month post op DS 08/30 Hlrjpuf2110/05/2025 11:15 AM ESTDistance [facility] General Surgery BMI PSY [address] [place] [address] Gudelia Byers, PhD [address] [place] [address] 1 month post op11/30/2025 1:30 PM EDTEducation General Surgery [address] [place] [address] [place] [address] 3 month post op DS 08/30 Cwtqkhf2712/06/2025 11:[address] EDTDistanSt[address] John's [facility] General Surgery [address] [facility] [address] [place] [address] [place], HIGHWAY TRAFFIC CONTROL TECHNICIAN.AUTOMATIC STEEL TIE ADJUSTER [address] [address] 3 month post op DS 08/30 GutnickNamePriorityAssociated DiagnosesDate/Time GASTRECTOMY, GASTRIC RESTRICTIVE PARTIAL (50 TO 100 CM COMMON CHANNEL) TO LIMIT ABSORPTION Morbid obesity due to excess calories (HCC) 08/30/2025 7:30 AM ESTdocumented as of this encounter Goals GoalPatient Goal TypeAssociated ProblemsRecent ProgressPatient-Stated?Author Bariatric Surgery Authorization Payroll And Benefits Manager Care PlanBariatric Surgery Authorization Care CompanionMariela Kay Bariatric Surgery Payroll And Benefits Manager Care PlanBariatric Surgery Care CompanionNoShanelfernandodavy [place] Autogenerated Goal Care PlanAutogenerated ProblemNoTalya Wesydocumented as of this encounter Visit Diagnoses Not on filedocumented in this encounter Additional Health Concerns Active ProblemsNoted DateDiagnosed DateBariatric Surgery Authorization Care Yfujiydbp92/24/2025ariatric Surgery Care Fimzdijez85/13/2025utogenerated Zgfbvgm2806/20/2025documented as of this encounter Care Teams Team MemberRelationshipSpecialtyStart DateEnd Date Tre Tripp DO [address] [facility] [address] [place] [phone] PCP - GeneralFamily Medicine10/20/15documented as of this encounter
--- OUTSIDE RECORDS SUMMARY | 2025-07-08 07:56 | XMS_ITS | Patient Health Record ---
Author Organization [facility] es Address [address] [place] [address] Care Team Providers Care Medical Instructor Name Role Phone Art Snider Primary Care Provider Whit Lantigua Unavailable [phone] Marie Morales Unavailable [phone] Blu Petty Unavailable [phone] Allergies Allergen (clinical drug ingredient) Drug/Non Drug Allergy documented on EMR Reaction Allergy Type Onset Date Status Decongestives (uncoded)UnknownAllergyActivephentermineAdipex-PUnknownDrug AllergyActiveamoxicillinAmoxicillinanaphylaxisDrug AllergyActivesulfamethoxazole / trimethoprimBactrim DSUnknownDrug AllergyActivepenicillaminepenicillAMINEhives Drug AllergyActivepromethazinePhenerganvomitingDrug AllergyActiveeslicarbazepine AptiomhivesDrug AllergyActive Results Component Value Reference Range Notes Hemoglobin A1c Reviewed date:08/02/2024 10:37:24 AM Interpretation:5.6 Performing Lab: Notes/Report: 5.6 Hemoglobin A1c 5.6 5 - 7.9 % Reason For Referral Reason DECLINED Please se nd the referral to Dr. Holt. PLEASE tell him to read my notes before seeing this patient if he so chooses to take her. I do NOT believe she has diabetes. Diagnosis 1 Prediabetes (R73.03) Referral Organization [facility] ice Referring Provider First Name Art Referring Provider Last Name Tylor Referring Provider Speciality [facility] ctice Referred Provider DAMARI HOLT Referred Provider Specialty Endocrinolog y Referral Priority Routine Reason PHONE DISCONNECTED Skin lesion on L breast that hasn't gone away. Pt would like a referral to see dermatology Diagnosis 1 Skin lesion of amy lisa (L98.8) Referral Organization [facility] Referring Provider First Name Art Referring Provider Last Name jerzyAlvaro Referring Provider Speciality [facility] Referred Provider [facility] Referred Provider Specialty Dermatology Referral Priority Routine Medications Medication SIG (Take, Route, Frequency, Duration) Notes Start Date End Date Status Dexcom G7 Sensor - Miscellaneous Use to continually check blood sugars; Duration: 30 days ActiveSemaglutide (1 MG/DOSE) 4 MG/3ML Solution Pen-injectoras directed SubcutaneousActivePen Loman 32G X 6 MM MiscellaneousUse to inject Victoza daily; Duration: 30 days5ActiveDexcom G6 Sensor - Miscellaneousas directed subcutaneously Every 10 days; Duration: 100 daysPlease dispense 10 qzfozlq7008/08/2023Not-Taking/PRNVictoza 18 MG/3ML Solution Pen-injectorinject 1.8 milligrams subcutaneously daily as directed; Duration: 30 daysNot-Taking/PRN Social History Tobacco Use: Social History Observation Description Date Details (start date - stop date) Unknown Social History Social DeterminantsSocial InfoQuestionAnswerNotesPRAPAREDate Completed/Updated: 10/15/2024What is your current housing situation?I have housingAre you worried about losing your housing?NoWhat is the highest level of school that you have finished?More than high schoolWhat is your 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 Check all that applyI do not have problems meeting my needsHas lack of transportation kept you from medical appointments, meetings, work or from getting things needed for daily living?No How often do you see or talk to people that you care about and feel close to? (For example: talkingto friends on the phone, visiting friends or family, going to anabaptism or club meetings)More than 5 times a weekHow stressed are you? Stress is when someone feels tense, nervous, anxious, or cant sleep at night because their mind is troubledSomewhatIn the past year have you spent more than 2 nights in a row in a intermediate, long term, mcfp center, orjuvenile correctional facility? NoAre you a refugee?NoWhat country are you from?[place]Do you feel physically and emotionally safe where you currently live?YesIn the past year, have you been afraid of your partner or ex-partner?NoPRAPARE Score:2General Social InfoQuestionAnswerNotesTransition of Care:ER/UC/hospital since last office visit?NoSpecialist seen since last office visit?NoSubstance abuse/mental health issues of patient/familyPatient -DeniesAbility to understand healthcare/treatmentPatient:GoodSexual Hx:Had sex in the last 12 months (vaginal, oral, or anal)?Yes? withMen only? Use protection?NoHave you ever had an STD?Yes? Chlamydia?YesLMP:[id number]/Support Concerns:Patient:NoBehaviors affecting healthPoor/Risky Behaviors:Denies-Communication Barrier:Language Barrier?:NoFood Insecurity ScreeningSocial InfoQuestionAnswerNotesFood Insecurity ScreeningWithin the last 12 months, have you been worried about your food running out before you received money to buy more?YesWithin the last 12 months, did the food you buy not last, and you didn't have money to buy more?No Drug/Alcohol:Social InfoQuestionAnswerNotesAUDIT-C (Standard)Did you have a drink containing alcohol in the past year?PvNyknbj9GqmnydtguwucgzAncrjteoGhypksh Use:Social InfoQuestionAnswerNotesTobacco Control (Standard)Tobacco use:Uses tobacco in other formsAdditional Findings: Tobacco usere-cigarette Problems Problem Type SNOMED Code ICD Code Onset Dates Problem Status W/U Status Risk Notes Problem Morbid obesity (disorder) (31361 6002) Morbid (severe) obesity due to excess calories (E66.01) ActiveconfirmedProblemHypocalcemia (3663943)Hypocalcemia (E83.51)Activeconfirmed ProblemShortness of breath (510956047)Shortness of breath (R06.02)Active confirmedProblemChronic back pain (502685729)Chronic back pain (M54.9)Active confirmedProblemAnxiety (53696279)Anxiety (F41.9)ActiveconfirmedProblemEssential hypertension (40402813)Essential hypertension (I10)ActiveconfirmedProblem Amenorrhea (18530849)Amenorrhea (N91.2)ActiveconfirmedProblemPolycystic ovary syndrome (disorder) (472340570)PCOS (polycystic ovarian syndrome) (E28.2)Active confirmedProblemUncomplicated moderate persistent asthma (399332621)Moderate persistent asthma without complication (J45.40)ActiveconfirmedProblemMissed period (14433251)Missed menses (N92.6)ActiveconfirmedProblemDepressive disorder (disorder) (08777929)Depression, unspecified depression type (F32.9)Active confirmedProblemExcessive daytime sleepiness - normal night sleep (601653020) Daytime sleepiness (R40.0)ActiveconfirmedProblemObese (895593609)Obese (E66.9) ActiveconfirmedProblemSeasonal allergic rhinitis (669188765)Seasonal allergic rhinitis, unspecified trigger (J30.2)ActiveconfirmedProblemBody mass index 40+ - morbidly obese (918384990)BMI 60.0-69.9, adult (Z68.44)ActiveconfirmedProblem Galactorrhea not associated with childbirth (71920307)Galactorrhea (N64.3)Active confirmedProblemOpioid use disorder (6255317926)Opioid use disorder (F11.99) ActiveconfirmedProblemBody mass index 30+ - obesity (finding) (468958766)Body mass index [BMI] 60.0-69.9, adult (Z68.44)ActiveconfirmedProblemFactitious disorder (00326802)Factitious disorder (F68.10)Activeconfirmed Vital Signs Heart Rate 87 /min 10/15/2024 Jbmjckiihsi42.0 degrees Surkrcmbud82/07/2025Respiratory Rate20 /min10/15/2024 Yezuxhzc607 %10/15/2024lood pressure rmcuexzte23 mm Hg10/15/20246199Ncnkxy1 ft 11 in in10/15/2024lood pressure ytuxverf942 mm Hg10/15/20244832Saptwv706.2 lbs 10/15/2024BMI68.1 kg/m210/15/2024 Encounters Encounter Location Date Provider Diagnosis [place] [address] [place] [address] 07/12/2024 [facility] [place] [address]/06/2024 [facility] [place] [address]/02/2024[facility] lesion of breast L98.8[facility] [address] [place] [address]/[facility] [place] [address]/21/2025[facility] [place] [address] [facility] [place] [address] 03/01/2025[facility] [place] [address]/[facility] [address]/05/2024Frank KickelMorbid (severe) obesity due to excess calories E66.01 and Prediabetes R73.03[facility] [place] [address] zRiceMorbid (severe) obesity due to excess calories E66.01 ; Body mass index [BMI] 60.0-69.9, adult Z68.44 and Hypocalcemia E83.51[facility] [address] HospitaleFactitious disorder F68.10 ; Morbid (severe) obesity due to excess calories E66.01 and Prediabetes R73.03 [facility] [address] Art zzzRiceFactitious disorder F68.10 and Morbid (severe) obesity due to excess calories E66.01[place] [address] [place] [address]Art zzzRiceFactitious disorder F68.10 ; Morbid (severe) obesity due to excess calories E66.01 and Prediabetes R73.03 Assessments Encounter Date Diagnosis (ICD Code) Assessment Notes Treatment Notes Treatment Clinical Notes Section Notes 07/12/2024 Morbid (severe) obesity due to e xcess calories (ICD-10 - E66.01) Discussed the increase in mortality that obesity can bring epecially with the patient's concurrent medical comorbidities. She has tried Victoza and Trulicity so far without much relief for weight loss. Victoza initially worked, but has since not been working, and Trulicity gave her side effects of nausea and vomiting. When the patient got into the room today, she was adamant that she is a type 2 diabetic and even said that I put that in her chart. When reviewing her records, she has never had that diagnosis at [facility]. She was, from a previous CMP, found to be prediabetic, which is the diagnosis that I personally use in order to get her Victoza as well as the Dexcom approved for her. She told me that she has had type 2 diabetes since she was 15 years old and the reason that her blood sugars are this well-controlled is because she has good eating and exercise habits. For reference on the chart, her most recent A1c is 5.5% and her most recent fasting sugar from recent comprehensive metabolic panel is 90, which is not even close to the range of diabetes. At this point, she would not even qualify for being aprediabetic as well. She was wearing a Dexcom CGM in the office today, and I went to check more history, but she says that it gets deleted every day because she does not have an actual prescription for it. Whether this is true or not, I checked the history from today's blood sugars, and she was definitely not even close to having a random blood sugar greater than 200, which is the other definition for meeting type 2 diabetes. At this point, I did offer her a slew of other options for her weightloss includin) bariatric surgery-the patient has seen the bariatric surgeon and said I could not get surgery because my A1c was too high. 2) weight management clinic-the patient has been to the weight management clinic and did not like the providers and staff that were there 3) dietitian-the patient swears that she eats exactly the way that the dietitian has asked her to eat, and does not deviate from this at all despite her BMI being 67 I did say, that we could try to switch from Victoza to a Wegovy for her weight loss, but the patient did not want to do this either. I also did say that without objective evidence that she actually has type 2 diabetes, I cannot put that she is a type II diabetic in her chart. We did talk about healthier eating habits in general as well as a potential exercise program. Emphasized the importance of weight loss via exercising and adhering to a healthier way of eating by reducing 1. Processed foods 2. Seed oils 3. Processed sugars 07/12/2024ody mass index [BMI] 60.0-69.9, adult (ICD-10 - Z68.44)07/13/2024 Morbid (severe) obesity due to excess calories (ICD-10 - E66.01)Discussed patient concerns regarding elevated blood glucose. While patient states that she has beentaking insulin for 14 years from us we do not have any documentation confirming that information.We discussed that Ozempic is typically only covered by insurance companies for the diagnosis of diabetes, and the patient does not currently meet criteria based on the information that we have at present. I explained that we could send in Wegovy which is a similar compound for weight loss, but patient denied this option stating that she wanted Ozempic. She became increasingly frustrated during our discussion and demanded to speak with the nurse who roomed me the other day and a more competent physician. I recommended that the patient follow up with her PCP as they may have additional information. She requested that I put the diagnosis for diabetes into her chart because the other doctor said they would. I stated that I was not comfortable performing this action and that she would need to speak with her PCP to clarify the situation. Patient started shouting and making additional demands. The visit was concluded and I discussed the case with Dr. Cason, the precepting physician, for additional recommendations. Dr. Cason addition: Whit Lantigua NP, clinical pharmacologist, came and talked with the patient, whom she independently diagnosed with unmedicated Bipolar 1, and the patient will follow with Whit this week in . Ultimately, the patient left much calmer, and actually thanked Whit Lantigua for her efforts. We ultimately found no previous evidence that Ms. Patiño had Diabetes Mellitus. Keon Cason08/02/2024Factitious disorder (ICD-10 - F68.10) 07/14/24: Spoke with the patient on the phone for approximately 10 minutes today. The patient statedthat she did in fact speak to Whit Lantigua yesterday, but does not believe that she has any type of mental illness at all. She said she will refuse to go see Whit Lantigua because psych meds are not herissue, but rather she has diabetes. Whit also described that the patient potentially has bipolar 1 v ersus bipolar 2 disorder, and that psychiatric medication would be extremely beneficial for her. She is adamant in her refusal to ever go see a psych doctor. In terms of the diabetes, she said that her blood sugars have been fluctuating in the 300s. I did tell her that if her blood sugars are over 300 to go to the ER. She said she doesn't want to waste her time going to the ER if they're just going to give her insulin, and wondering why we can't give her insulin right now. There is still no evidence or proof of the fact that her own Dexcom has shown ablood sugar above 170. She said she has been on Lantus since she has been 15 years old, but extensive medical research has been unable to find proof of this. I did tell the patient that if she would want to potentially be pursued for diabetes that she can be referred to an collections manager. She got extremely upset and vigilant saying that she would like to see a doctor that is actually going to dosomething for her because I am not doing anything to help her diabetes. At this point, she absolutely does not have type 2 diabetes in any way shape or form. I do think that she does have an underlying psychiatric condition of factitious disorder especially given the past medical history of her momalso having a positive history of this. 08/02/24: Patient came in with multiple screen and shots claiming that her blood sugars have been consistently over 300 based on her Dexcom readings. She really wanted to get another A1c checked in order to be qualified and diagnosed with type 2 diabetes so she could get the Ozempic. I discussed with the patient in detail that getting another fingerstick A1c today would likely not be covered by insurance and cost her a lot of money [id number]. She said she did not care, as she needed this for the diagnostic diabetes. We did get the A1c in the office today that showed a value of 5.6%. Although this is 1 month removed and the last A1c check, it only went up 0.1%. This does not correspond with sugars that have been controlled especially to the level of greater than 300 or more. I did go over multiple options including referral to endocrinology, which the patient said she does not want to do. She did say that endocrinology called her this morning and told her that there was nothing for them to do for her. I did go over multiple options as listed under morbid obesity diagnosis code,but she does not want to do any of those. She said she is going to do an online weight loss programthrough one of her friends and potentially try to get semaglutide compounded. She did say that she has been sticking to her diet well, even though she has gained an additional 8 pounds in the last 3 weeks. I really emphasized healthier eating habits and going over them with the patient, and after I finished discussing things, the patient said she eats exactly the way that I described it and she just cannot lose weight. I do not necessarily believe her that this is the case as if she ate that way she would lose weight especially with her BMI as high as it is. 08/09/2024Skin lesion of breast (ICD-10 - L98.8)10/15/2024Morbid (severe) obesity due to excess calories (ICD-10 - E66.01) 07/14/24 + 08/02/2024: Discussed the increase in mortality that obesity can bring epecially with thepatient's concurrent medical comorbidities. She has tried Victoza and Trulicity so far without much relief for weight loss. Victoza initially worked, but has since not been working, and Trulicity gave her side effects of nausea and vomiting. She would like to go back on Victoza, and I think this is reasonable We did talk about healthier eating habits in general as well as a potential exercise program. Emphasized the importance of weight loss via exercising and adhering to a healthier way of eating by reducing 1. Processed foods 2. Seed oils 3. Processed sugars PLAN: START Victoza 0.6 mg daily 10/15/2024Factitious disorder (ICD-10 - F68.10) 07/14/24: Spoke with the patient on the phone for approximately 10 minutes today. The patient statedthat she did in fact speak to Whit Lantigua yesterday, but does not believe that she has any type of mental illness at all. She said she will refuse to go see Whit Lantigua because psych meds are not herissue, but rather she has diabetes. Whit also described that the patient potentially has bipolar 1 v ersus bipolar 2 disorder, and that psychiatric medication would be extremely beneficial for her. She is adamant in her refusal to ever go see a psych doctor. In terms of the diabetes, she said that her blood sugars have been fluctuating in the 300s. I did tell her that if her blood sugars are over 300 to go to the ER. She said she doesn't want to waste her time going to the ER if they're just going to give her insulin, and wondering why we can't give her insulin right now. There is still no evidence or proof of the fact that her own Dexcom has shown ablood sugar above 170. She said she has been on Lantus since she has been 15 years old, but extensive medical research has been unable to find proof of this. I did tell the patient that if she would want to potentially be pursued for diabetes that she can be referred to an collections manager. She got extremely upset and vigilant saying that she would like to see a doctor that is actually going to dosomething for her because I am not doing anything to help her diabetes. At this point, she absolutely does not have type 2 diabetes in any way shape or form. I do think that she does have an underlying psychiatric condition of factitious disorder especially given the past medical history of her momalso having a positive history of this. 08/02/24: Patient came in with multiple screen and shots claiming that her blood sugars have been consistently over 300 based on her Dexcom readings. She really wanted to get another A1c checked in order to be qualified and diagnosed with type 2 diabetes so she could get the Ozempic. I discussed with the patient in detail that getting another fingerstick A1c today would likely not be covered by insurance and cost her a lot of money [id number]. She said she did not care, as she needed this for the diagnostic diabetes. We did get the A1c in the office today that showed a value of 5.6%. Although this is 1 month removed and the last A1c check, it only went up 0.1%. This does not correspond with sugars that have been controlled especially to the level of greater than 300 or more. I did go over multiple options including referral to endocrinology, which the patient said she does not want to do. She did say that endocrinology called her this morning and told her that there was nothing for them to do for her. I did go over multiple options as listed under morbid obesity diagnosis code,but she does not want to do any of those. She said she is going to do an online weight loss programthrough one of her friends and potentially try to get semaglutide compounded. She did say that she has been sticking to her diet well, even though she has gained an additional 8 pounds in the last 3 weeks. I really emphasized healthier eating habits and going over them with the patient, and after I finished discussing things, the patient said she eats exactly the way that I described it and she just cannot lose weight. I do not necessarily believe her that this is the case as if she ate that way she would lose weight especially with her BMI as high as it is. 10/15/24: today the patient has been surprisngly fairly pleasant. She claims to be back on her medications. She would like a refill on her DexCom to track her sugars, which she claims is why her A1C isso good. This is contrary to what she said a couple of months ago swearing up and down that she hasdiabetes. She also believes most of her body is muscle especially in her legs. She would like to be on Victoza again, and I think this is a reasonable request, as I do want to help her lose weight with her other comorbidities. 07/14/2024Factitious disorder (ICD-10 - F68.10) Spoke with the patient on the phone for approximately 10 minutes today. The patient stated that shedid in fact speak to Whit Lantigua yesterday, but does not believe that she has any type of mental illness at all. She said she will refuse to go see Whit Lantigua because psych meds are not her issue, but rather she has diabetes. Whit also described that the patient potentially has bipolar 1 versus bipolar 2 disorder, and that psychiatric medication would be extremely beneficial for her. She is adamant in her refusal to ever go see a psych doctor. In terms of the diabetes, she said that her blood sugars have been fluctuating in the 300s. I did tell her that if her blood sugars are over 300 to go to the ER. She said she doesn't want to waste her time going to the ER if they're just going to give her insulin, and wondering why we can't give her insulin right now. There is still no evidence or proof of the fact that her own Dexcom has shown ablood sugar above 170. She said she has been on Lantus since she has been 15 years old, but extensive medical research has been unable to find proof of this. I did tell the patient that if she would want to potentially be pursued for diabetes that she can be referred to an collections manager. She got extremely upset and vigilant saying that she would like to see a doctor that is actually going to dosomething for her because I am not doing anything to help her diabetes. At this point, she absolutely does not have type 2 diabetes in any way shape or form. I do think that she does have an underlying psychiatric condition of factitious disorder especially given the past medical history of her mompaulao having a positive history of this. 08/02/2024Morbid (severe) obesity due to excess calories (ICD-10 - E66.01) 07/14/24 + 08/02/2024: Discussed the increase in mortality that obesity can bring epecially with thepatient's concurrent medical comorbidities. She has tried Victoza and Trulicity so far without much relief for weight loss. Victoza initially worked, but has since not been working, and Trulicity gave her side effects of nausea and vomiting. When the patient got into the room today, she was adamant that she is a type 2 diabetic and even said that I put that in her chart. When reviewing her records, she has never had that diagnosis at [facility]. She was, from a previous CMP, found to be prediabetic, which is the diagnosis that I personally use in order to get her Victoza as well as the Dexcom approved for her. She told me that she has had type 2 diabetes since she was 15 years old and the reason that her blood sugars are this well-controlled is because she has good eating and exercise habits. For reference on the chart, her most recent A1c is 5.5% and her most recent fasting sugar from recent comprehensive metabolic panel is 90, which is not even close to the range of diabetes. At this point, she would not even qualify for being aprediabetic as well. She was wearing a Dexcom CGM in the office today, and I went to check more history, but she says that it gets deleted every day because she does not have an actual prescription for it. Whether this is true or not, I checked the history from today's blood sugars, and she was definitely not even close to having a random blood sugar greater than 200, which is the other definition for meeting type 2 diabetes. At this point, I did offer her a slew of other options for her weightloss includin) bariatric surgery-the patient has seen the bariatric surgeon and said I could not get surgery because my A1c was too high. 2) weight management clinic-the patient has been to the weight management clinic and did not like the providers and staff that were there 3) dietitian-the patient swears that she eats exactly the way that the dietitian has asked her to eat, and does not deviate from this at all despite her BMI being 67 I did say, that we could try to switch from Victoza to a Wegovy for her weight loss, but the patient did not want to do this either. I also did say that without objective evidence that she actually has type 2 diabetes, I cannot put that she is a type II diabetic in her chart. We did talk about healthier eating habits in general as well as a potential exercise program. Emphasized the importance of weight loss via exercising and adhering to a healthier way of eating by reducing 1. Processed foods 2. Seed oils 3. Processed sugars 07/13/2024rediabetes (ICD-10 - R73.03)07/14/2024Morbid (severe) obesity due to excess calories (ICD-10 - E66.01) Discussed the increase in mortality that obesity can bring epecially with the patient's concurrent medical comorbidities. She has tried Victoza and Trulicity so far without much relief for weight loss. Victoza initially worked, but has since not been working, and Trulicity gave her side effects of nausea and vomiting. When the patient got into the room today, she was adamant that she is a type 2 diabetic and even said that I put that in her chart. When reviewing her records, she has never had that diagnosis at [facility]. She was, from a previous CMP, found to be prediabetic, which is the diagnosis that I personally use in order to get her Victoza as well as the Dexcom approved for her. She told me that she has had type 2 diabetes since she was 15 years old and the reason that her blood sugars are this well-controlled is because she has good eating and exercise habits. For reference on the chart, her most recent A1c is 5.5% and her most recent fasting sugar from recent comprehensive metabolic panel is 90, which is not even close to the range of diabetes. At this point, she would not even qualify for being aprediabetic as well. She was wearing a Dexcom CGM in the office today, and I went to check more history, but she says that it gets deleted every day because she does not have an actual prescription for it. Whether this is true or not, I checked the history from today's blood sugars, and she was definitely not even close to having a random blood sugar greater than 200, which is the other definition for meeting type 2 diabetes. At this point, I did offer her a slew of other options for her weightloss includin) bariatric surgery-the patient has seen the bariatric surgeon and said I could not get surgery because my A1c was too high. 2) weight management clinic-the patient has been to the weight management clinic and did not like the providers and staff that were there 3) dietitian-the patient swears that she eats exactly the way that the dietitian has asked her to eat, and does not deviate from this at all despite her BMI being 67 I did say, that we could try to switch from Victoza to a Wegovy for her weight loss, but the patient did not want to do this either. I also did say that without objective evidence that she actually has type 2 diabetes, I cannot put that she is a type II diabetic in her chart. We did talk about healthier eating habits in general as well as a potential exercise program. Emphasized the importance of weight loss via exercising and adhering to a healthier way of eating by reducing 1. Processed foods 2. Seed oils 3. Processed sugars 07/12/2024Hypocalcemia (ICD-10 - E83.51)Patient technically has hypocalcemia on labs, but corrected for albumin, the patient has calcium levels within normal range. She likely has underlying magnesium deficiency. I told the patient to takea general multivitamin daily that has both magnesium and vitamin D. We can potentially recheck thisin a year with routine labs as I do not think that she needs rechecking. Patient is largely asymptomatic at this time showing no signs of hypocalcemia from clinical exam07/14/2024rediabetes (ICD-10 - R73.03)See above08/02/2024rediabetes (ICD-10 - R73.03)Patient has now had 2 separate hemoglobin A1c fingersticks done approximately in the last 5 weeks. They both have had values less than 5.7, so at this point, the patient is no longer even a prediabetic.08/02/2024OtherBody Mass Index: Care Instructions material was published, Learning About Benefits of Quitting Smoking material was published 10/15/2024OtherBody Mass Index: Care Instructions material was published, Learning About Benefits of Quitting Smoking material was published Plan Of Treatment No Information Insurance Providers Payer Name Payer Address Payer Phone Subscriber Number Group Number Insured Name Patient Relationship to Insured Coverage Start Date Coverage End Date [employer] [place] [employer] [address] [place] [address] [id number] MAXINE SUBHAelf - patient is the [id number] 2022Wrap [facility] [address] [place] [id number], SUBHAelf - patient is the [id number] 2021[facility] [address] [place] [phone], DESTINYSelf - patient is the [id number] [facility] [address] [place] [phone], SUBHAelf - patient is the [id number] Medical (General) History Medical History History ICD Code Back pain PCOSAnxietySurgical History Surgery Date(Month/Year) 2014 Hospitalization History Reason Date(Month/Year) 2014
--- OUTSIDE RECORDS SUMMARY | 2025-07-08 07:56 | XMS_ITS | Encounter Summary ---
Author Organization [facility] Address [address] [place] [address] Care Team Providers Care Nuclear Process Engineer Name Role Phone Tre Tripp DO Primary Care Provider + Source Comments In the event this information is protected by the Federal Confidentiality of Alcohol and Drug AbusePatient Records regulations: The Federal rules restrict any use of the information to criminally investigate or prosecute any alcohol or drug abuse patient.[facility] Encounter Details DateTypeDepartmentCare Team (Latest Contact Info)Uezepfoaaik18/21/2025 Patient [facility] [address] [phone] Provider, Ccf Please Read: Genetic Testing Information Social History Tobacco UseTypesPacks/DayYears UsedDateSmoking Tobacco: FormerCigarettes Smokeless Tobacco: Never Comments:nicotine free vape Alcohol UseStandard Drinks/WeekCommentsNot Currently0 (1 standard drink = 0.6 oz pure alcohol)nonePHQ-2AnswerDate RecordedPHQ-2 jbhpt131Hunger Vital Sign AnswerDate RecordedWithin the past 12 months, you worried that your food would run out before you got the money to buymore.Never true05/24/2025Within the past 12 months, the food you bought just didn't last and you didn't have money to get more.Never true05/24/2025rea Deprivation IndexAnswerDate RecordedNational Score (1-100), lower number is lower tfnn875302/18/2025State Score (1-10), lower number is lower vqaw37802/18/2025Data from: https://www.neighborhoodatlas.[facility]/. Last address used for mgz[address]02/18/2025CommentsNoSex and Gender InformationValueDate RecordedSex Assigned at LfhlySpfrwv45/11/2021 6:50 PM EDT Legal NflIqqpsf76/12/2016 10:17 AM ESTGender KprkputgEqrmaz19/11/2021 6:50 PM EDTSexual ZhstipdimfcKiwqcqza34/11/2021 6:50 PM EDTdocumented as of this encounter Functional Status * Are you deaf or do you have serious difficulty hearing?AnswerDate of TazeembcwdUaxkxwBn68/15/2021 11:44 AM Ana Frances RN * Are you blind or do you have serious difficulty seeing, even when wearing glasses?AnswerDate of SjeqvxaaatSiqbpwNx48/15/2021 11:44 AM Ana Frances RN * Do you have serious difficulty walking or climbing stairs?AnswerDate of EcrwefxonoXafybnPm03/15/2021 11:44 AM Ana Frances RN * Do you have difficulty dressing or bathing?AnswerDate of AssessmentAuthorNo 08/22/2021 11:44 AM Ana Frances RN * Because of a physical, mental, or emotional condition, do you have difficulty doing errands alone such as visiting a doctor's office or shopping?AnswerDate of MxdnhmldnuUqefvsOc72/15/2021 11:44 AM Ana Frances RN documented as of this encounter Mental Status * Because of a physical, mental, or emotional condition, do you have serious difficulty concentrating, remembering, or making decisions?AnswerEntry Date WzmladIv14/15/2021 11:44 AM Ana Frances RN documented in this encounter Plan of Treatment DateTypeDepartmentCare Team (Latest Contact Info)Brtwduhtveb15/03/2025 9:00 AM [facility]Educbay[facility] [address] [place] [address] Veronica Edouard, RD [address] [place] [address] pre-op08/10/2025 10:40 AM ESTPAT Pre Anesthesia [address] [place] [address] pre-op08/15/2025 1:00 PM [facility]Tri[facility] [address] [place] [address] Isak Ló[place] [address] [place] [address] pre-op08/30/2025 7:30 AM ESTHospital Encounter [facility] Operating Room [id number] [place], [place] [phone] Isak Ló[place] [address] [place] [address] Morbid obesity due to excess calories (HCC) [E66.01]08/30/2025 7:30 AM EST - 08/30/2025 11:15 AM ESTSurgery [facility] Operating Room [address] [place] [address] Isak López [place] [address] [place] [address] GASTRECTOMY, GASTRIC RESTRICTIVE PARTIAL (50 TO 100 CM COMMON CHANNEL) TO LIMIT TMXNMSYMCR20/31/2025 11:00 AM ESTOffice Visit General Surgery [address] [address] Maribel Park, FREIDA.TECHNICAL STENOGRAPHER [address] [address] 1 week post op DS 08/30 Hvsowvj3409/14/2025 11:00 AM ESTEducation General Surgery [address] [facility] [place] [address] [place], [place] [id number] 2 Week post op DS 08/30 Rntwkkx8910/03/2025 11:00 AM ESTOffice Visit General Surgery [address] [place] [address] Maribel Park, FREIDA.TECHNICAL STENOGRAPHER [address] [address] 1 month post op DS 08/30 Fvffhmu7410/05/2025 11:15 AM ESTDistanUniversity of [facility] Health [facility] General Surgery BMI PSY [address] [place] [address] Gudelia Byers, PhD [address] [place] [address] 1 month post op11/30/2025 1:30 PM EDTEducation General Surgery [address] [place] [address] [place] [address] 3 month post op DS 08/30 Kmybpxc0312/06/2025 11:00 AM EDTTrihealth [facility] General Surgery [address] [address] [facility] [address] [place] [address] Maribel Park, FREIDA.TECHNICAL STENOGRAPHER [address] [address] 3 month post op DS 08/30 GutnickNamePriorityAssociated DiagnosesDate/Time GASTRECTOMY, GASTRIC RESTRICTIVE PARTIAL (50 TO 100 CM COMMON CHANNEL) TO LIMIT ABSORPTION Morbid obesity due to excess calories (HCC) 08/30/2025 7:30 AM ESTdocumented as of this encounter Goals GoalPatient Goal TypeAssociated ProblemsRecent ProgressPatient-Stated?Author Bariatric Surgery Authorization County Auditor Care PlanBariatric Surgery Authorization Care CompanionMariela Kay Bariatric Surgery County Auditor Care PlanBariatric Surgery Care CompanionItalia Zaragoza Autogenerated Goal Care PlanAutogenerated ProblemNoTalya, Beckydocumented as of this encounter Visit Diagnoses Not on filedocumented in this encounter Additional Health Concerns Active ProblemsNoted DateDiagnosed DateBariatric Surgery Authorization Care Lvlfgoslb65/24/2025ariatric Surgery Care Llgoqoavt27/13/2025Autogenerated Wguljvd4906/20/2025documented as of this encounter Care Teams Team MemberRelationshipSpecialtyStart DateEnd Date Tre Tripp DO [address] [place] [phone] PCP - GeneralFamily Medicine10/20/15documented as of this encounter
--- OUTSIDE RECORDS SUMMARY | 2025-07-08 07:56 | XMS_ITS | Encounter Summary ---
Author Organization [facility] Address [facility] [place] [address] Care Team Providers Care Swaging Machine Adjuster Name Role Phone Tre Tripp DO Primary Care Provider + Source Comments In the event this information is protected by the Federal Confidentiality of Alcohol and Drug AbusePatient Records regulations: The Federal rules restrict any use of the information to criminally investigate or prosecute any alcohol or drug abuse patient.[facility] Encounter Details DateTypeDepartmentCare Team (Latest Contact Info)Lylfvkhqmkw22/20/2025Travel Social History Tobacco UseTypesPacks/DayYears UsedDateSmoking Tobacco: FormerCigarettes Smokeless Tobacco: Never Comments:nicotine free vape Alcohol UseStandard Drinks/WeekCommentsNot Currently0 (1 standard drink = 0.6 oz pure alcohol)nonePHQ-2AnswerDate RecordedPHQ-2 zuabv572Hunger Vital Sign AnswerDate RecordedWithin the past 12 months, you worried that your food would run out before you got the money to buymore.Never true05/24/2025Within the past 12 months, the food you bought just didn't last and you didn't have money to get more.Never true05/24/2025rea Deprivation IndexAnswerDate RecordedNational Score (1-100), lower number is lower grxy357902/18/2025State Score (1-10), lower number is lower htxc06902/18/2025Data from: https://www.neighborhoodatlas.medicine.[facility]/. Last address used for wjlpdlgdyup[address]02/18/2025CommentsNoSex and Gender InformationValueDate RecordedSex Assigned at WcrugBowotk40/11/2021 6:50 PM EDT Legal StcSloqdm38/12/2016 10:17 AM ESTGender GosmsvwyQtrtff76/11/2021 6:50 PM EDTSexual MgdwagtpcogOtgmvzlx33/11/2021 6:50 PM EDTdocumented as of this encounter Functional Status * Are you deaf or do you have serious difficulty hearing?AnswerDate of HsuguoozdbThduspCc63/15/2021 11:44 AM Ana Frances RN * Are you blind or do you have serious difficulty seeing, even when wearing glasses?AnswerDate of UqjveymwwwXaacuqJo35/15/2021 11:44 AM Ana Frances RN * Do you have serious difficulty walking or climbing stairs?AnswerDate of EjkojqppqkNojtnrIc18/15/2021 11:44 AM Ana Farnces RN * Do you have difficulty dressing or bathing?AnswerDate of AssessmentAuthorNo 08/22/2021 11:44 AM Ana Frances RN * Because of a physical, mental, or emotional condition, do you have difficulty doing errands alone such as visiting a doctor's office or shopping?AnswerDate of UqfcawddnzHeohegTu65/15/2021 11:44 AM Ana Frances RN documented as of this encounter Mental Status * Because of a physical, mental, or emotional condition, do you have serious difficulty concentrating, remembering, or making decisions?AnswerEntry Date JmwjlpVj33/15/2021 11:44 AM Ana Frances RN documented in this encounter Plan of Treatment DateTypeDepartmentCare Team (Latest Contact Info)Ajpqtugyrqg39/03/2025 9:00 AM [facility] General Surgery [address] [place] [address] [place] [address] [place] [address] [place], [place] [address] pre-op08/10/2025 10:40 AM ESTPAT Pre Anesthesia [address] [place] [address] pre-op08/15/2025 1:00 PM [facility] General Surgery [address] [place] [address] Isak Ló[place] [address] [place] [address] pre-op08/30/2025 7:30 AM ESTHospital Encounter [facility] Operating Room [address] [place] [address] Isak López [place] [address] [place] [address] Morbid obesity due to excess calories (HCC) [E66.01]08/30/2025 7:30 AM EST - 08/30/2025 11:15 AM [facility] [address] [place] [address] Isak López MD [address] [place] [address] GASTRECTOMY, GASTRIC RESTRICTIVE PARTIAL (50 TO 100 CM COMMON CHANNEL) TO LIMIT OFBCQIBRYO40/31/2025 11:00 AM ESTOffice Visit General Surgery [address] [address] Maribel Park, FREIDA.BUDGET SPECIALIST [address] [address] [address] 1 week post op DS 08/30 Trpzvuf3509/14/2025 11:00 AM ESTEpremier health General Surgery [address] [place] [address] [place] [address] 2 Week post op DS 08/30 Mwzeewk0910/03/2025 11:00 AM ESTOffice Visit General Surgery [address] [place] [address] Maribel Park, FREIDA.BUDGET SPECIALIST [address] [address] 1 month post op DS 08/30 Dwjasmo5410/05/2025 11:15 AM ESTDistance [facility] General [facility] BMI PSY [address] [place] [address] Gudelia Byers, PhD [address] [place] [address] 1 month post op11/30/2025 1:30 PM EDTEducation General Surgery [address] [place] [address] Veronica Edouard, [address] [place] [address] 3 month post op DS 08/30 Uxgvfoy3512/06/2025 11:00 AM EDTDistance [facility] [address] [address] [facility] [address] [place], [place] [address] Maribel Park, FREIDA.BUDGET SPECIALIST [address] [address] 3 month post op DS 08/30 GutnickNamePriorityAssociated DiagnosesDate/Time GASTRECTOMY, GASTRIC RESTRICTIVE PARTIAL (50 TO 100 CM COMMON CHANNEL) TO LIMIT ABSORPTION Morbid obesity due to excess calories (HCC) 08/30/2025 7:30 AM ESTdocumented as of this encounter Goals GoalPatient Goal TypeAssociated ProblemsRecent ProgressPatient-Stated?Author Bariatric Surgery Authorization Solar Pool Heating Installer Care PlanBariatric Surgery Authorization Care CompanionMariela Kay Bariatric Surgery Solar Pool Heating Installer Care PlanBariatric Surgery Care CompanionItalia Zaragoza Autogenerated Goal Care PlanAutogenerated ProblemLang Zaragozaocumented as of this encounter Visit Diagnoses Not on filedocumented in this encounter Additional Health Concerns Active ProblemsNoted DateDiagnosed DateBariatric Surgery Authorization Care Ivaorkupa32/24/2025Bariatric Surgery Care Tdzosrjro74/13/2025Autogenerated Zandors5706/20/2025documented as of this encounter Care Teams Team MemberRelationshipSpecialtyStart DateEnd Date Tre Tripp DO [address] [facility] [address] [place] [address] PCP - GeneralFamily Medicine10/20/15documented as of this encounter
--- OUTSIDE RECORDS SUMMARY | 2025-07-08 07:56 | XMS_ITS | Encounter Summary ---
Author Organization [facility] Address [address] [place] [address] Care Team Providers Care Security Inspector Name Role Phone Tre Tripp Mac Primary Care Provider + Source Comments In the event this information is protected by the Federal Confidentiality of Alcohol and Drug AbusePatient Records regulations: The Federal rules restrict any use of the information to criminally investigate or prosecute any alcohol or drug abuse patient.[facility] Encounter Details DateTypeDepartmentCare Team (Latest Contact Info)Ecwlctadmkl66/21/2025 Patient Kyg Genetic [facility] [address] [id number] Maude Tse [facility] Genetic Testing Billing Information Social History Tobacco UseTypesPacks/DayYears UsedDateSmoking Tobacco: FormerCigarettes Smokeless Tobacco: Never Comments:nicotine free vape Alcohol UseStandard Drinks/WeekCommentsNot Currently0 (1 standard drink = 0.6 oz pure alcohol)nonePHQ-2AnswerDate RecordedPHQ-2 [id number] Vital Sign AnswerDate RecordedWithin the past 12 months, you worried that your food would run out before you got the money to buymore.Never true05/24/2025Within the past 12 months, the food you bought just didn't last and you didn't have money to get more.Never true05/24/2025rea Deprivation IndexAnswerDate RecordedNational Score (1-100), lower number is lower zcxu378502/18/2025State Score (1-10), lower number is lower hmyo72902/18/2025Data from: https://www.neighborhoodatlas.[facility].edu/. Last address used for ebnhbtgitgs[address]/18/2025CommentsNoSex and Gender InformationValueDate RecordedSex Assigned at SuzxzClpusv77/11/2021 6:50 PM EDT Legal EbiXmumha20/12/2016 10:17 AM ESTGender MkckfallTfiweu80/11/2021 6:50 PM EDTSexual SjummbbnfzaQdvnvyih53/11/2021 6:50 PM EDTdocumented as of this encounter Functional Status * Are you deaf or do you have serious difficulty hearing?AnswerDate of OtwdvgddxjDkdpzvGm49/15/2021 11:44 AM Ana Frances RN * Are you blind or do you have serious difficulty seeing, even when wearing glasses?AnswerDate of OirszigbsgCbnebfCn67/15/2021 11:44 AM Ana Frances RN * Do you have serious difficulty walking or climbing stairs?AnswerDate of OadjcihjibRxurlwLw63/15/2021 11:44 AM Ana Frances RN * Do you have difficulty dressing or bathing?AnswerDate of AssessmentAuthorNo 08/22/2021 11:44 AM Ana Frances RN * Because of a physical, mental, or emotional condition, do you have difficulty doing errands alone such as visiting a doctor's office or shopping?AnswerDate of EqhntnwafcChnwztOl76/15/2021 11:44 AM Ana Frances RN documented as of this encounter Mental Status * Because of a physical, mental, or emotional condition, do you have serious difficulty concentrating, remembering, or making decisions?AnswerEntry Date YclbifDg11/15/2021 11:44 AM Ana Frances RN documented in this encounter Plan of Treatment DateTypeDepartmentCare Team (Latest Contact Info)Chyhrwjzyyv30/03/2025 9:00 AM [facility] [address] [place] [address] Veronica Edouard, RD [address] [place] [address] pre-op08/10/2025 10:40 AM ESTPAT Pre Anesthesia [address] [place] [address] pre-op08/15/2025 1:00 PM General Surgery [address] [place] [address] Isak López [place] [address] [place] [address] pre-op08/30/2025 7:30 AM ESTHospital Encounter [facility] Operating Room [address] [phone] Isak Ló[place] [address] [place] [address] Morbid obesity due to excess calories (HCC) [E66.01]08/30/2025 7:30 AM EST - 08/30/2025 11:15 AM ESTSurgery [facility] [address] [place] [address] Isak López [place] [address] [place] [address] GASTRECTOMY, GASTRIC RESTRICTIVE PARTIAL (50 TO 100 CM COMMON CHANNEL) TO LIMIT DMEAXHZNUS09/31/2025 11:00 AM ESTOffice Visit General Surgery [address] [address] Maribel Park, FREIDA.CATALOG SPECIALIST [address] [address] 1 week post op DS 08/30 Rdgpinv2909/14/2025 11:00 AM ESTEducation General Surgery [address] [place] [address] Veronica Edouard, GINO [address] [place], [place] [id number] 2 Week post op DS 08/30 Cemaohb0210/03/2025 11:00 AM ESTOffice Visit General Surgery [address] [place] [address] [place] [address] Maribel Park, FREIDA.CATALOG SPECIALIST [address] [address] 1 month post op DS 08/30 Xoiscvh9810/05/2025 11:15 [address] ESTDistanU[facility] BMI PSY [address] [place] [address] Gudelia Byers, PhD [address] [place], [place] [id number] 1 month post op11/30/2025 1:30 PM EDTEducation General Surgery [id number] [place] [address] [place] [address] 3 month post op DS 08/30 Uykevsx2912/06/2025 11:00 AM [facility]TMcc[facility] [address] [facility] [address] [place], [place] [id number] Maribel Park, FREIDA.CATALOG SPECIALIST [address] [address] 3 month post op DS 08/30 GutnickNamePriorityAssociated DiagnosesDate/Time GASTRECTOMY, GASTRIC RESTRICTIVE PARTIAL (50 TO 100 CM COMMON CHANNEL) TO LIMIT ABSORPTION Morbid obesity due to excess calories (HCC) 08/30/2025 7:30 AM ESTdocumented as of this encounter Goals GoalPatient Goal TypeAssociated ProblemsRecent ProgressPatient-Stated?Author Bariatric Surgery Authorization Neuro Psych Sales Specialist Care PlanBariatric Surgery Authorization Care CompanionMariela Kay Bariatric Surgery Neuro Psych Sales Specialist Care PlanBariatric Surgery Care CompanionNoMaItalia durant Autogenerated Goal Care PlanAutogenerated ProblemNoWes Babinydocumented as of this encounter Visit Diagnoses Not on filedocumented in this encounter Additional Health Concerns Active ProblemsNoted DateDiagnosed DateBariatric Surgery Authorization Care Mpnqjqush49/24/2025ariatric Surgery Care Fxnkkzhwl45/13/2025Autogenerated Zxafily4606/20/2025documented as of this encounter Care Teams Team MemberRelationshipSpecialtyStart DateEnd Date Tre Tripp DO [address] [place] [id number] PCP - GeneralFamily Medicine10/20/15documented as of this encounter
[2025-07-08 08:26] LABS: Hematocrit 37.1 % (36.0-48.0); Hemoglobin 11.4 g/dL (12.0-16.0); Immature Granulocytes Abs Auto 0.04 10^3/uL (0.00-0.03); Immature Granulocytes Pct Auto 0.3 % (0.0-0.5); Lymphocytes Absolute Auto 3.1 10^3/uL (1.2-3.8); Mean Corpuscular HGB Conc 30.7 g/dL (29.9-35.2); Mean Corpuscular Hemoglobin 24.8 pg (26.7-34.0); Mean Corpuscular Volume 80.7 fL (81.0-99.0); Platelet Count 491 10^3/uL (150-450); Red Blood Count 4.60 10^6/uL (4.20-5.40); White Blood Count 13.1 10^3/uL (4.0-11.0)
[2025-07-08 09:30] LABS: Alanine Aminotransferase 31 U/L (14-59); Albumin Globulin Ratio 0.5; Albumin Level 2.8 g/dL (3.4-5.0); Alkaline Phosphatase 81 U/L (46-116); Anion Gap 12.4; Aspartate Amino Transferase 17 U/L (15-37); Blood Urea Nitrogen 8.0 mg/dL (7.0-18.0); Calcium 9.1 mg/dL (8.5-10.1); Carbon Dioxide 27.5 mmol/L (21.0-32.0); Chloride 104 mmol/L (98-107); Estimated GFR (African America >60 (>=60 mL/min/1.73m^2); Estimated GFR (Non-African Ame >60 (>=60 mL/min/1.73m^2); Globulin 5.4 g/dL; Glucose 94 mg/dL (74-106); Potassium 3.9 mmol/L (3.5-5.1); Sodium 140 mmol/L (136-145); Total Protein 8.2 g/dL (6.4-8.2)
== END 2025-07-08 07:52 | disposition home or self-care (01) ==
LOC: LAB 07:52
PROVIDERS: PCP Family Medicine
DX: Z01.818 Encounter for other preprocedural examination (principal); E66.01 Morbid (severe) obesity due to excess calories
CPT/HCPCS: 36415; 80053; 84590; 85025